=== PATIENT | female | born 1935 | race Caucasian/White ===

== ENCOUNTER 2019-07-03 11:56 | Inpatient (IN) | payer MEDICARE, BC ==
[~2019-07-03] VITALS: Ht 170.2 cm; Wt 74.4 kg
--- NOTE | ~2019-07-03 | HEMODYNAMI ---
PATIENT:SALINA LAGUNAS MEDICAL RECORD: [id number] : 31 LOCATION[facility] AD[facility] DATE: 07/03/19 Generatedon:07/03/201917:22 Patient name: SALINA LAGUNAS Patient #: [id number] SSN: : Date of study: 07/03/2019 Page: Of Hemodynamic Procedure Report Patient Data Patient Demographics Procedure consent was obtained First Name: SALINA Gender: Female Last Name: JANNETH : 1935 Patient #: [id number] Age: 83 year(s) Race: Unknown Additional ID: [id number] Contact details Address: [place] [address] State: [place] City: [place] Zip code: [address] Past Medical History Allergies: No known allergies Admission Admission Data Admission Date: 07/03/2019 Admission Time: 11:56 Room #: [facility] Procedure Procedure Types Cath Procedure Peripheral Cath Diagnostic Procedure Abd/Extremity Extremities Bilat Lower Extremity Procedure Description Procedure Date Procedure Date: 07/03/2019 Procedure Start Time: 16:09 Procedure End Time: 17:22 Procedure Staff Name Function Shae Lomax MD Performing Physician SALMA MONTERO RT Monitor Hollis Baugh RT Scrub Corinne Bañuelos RN Nurse Procedure Data Cath Procedure Fluoroscopy Diagnostic fluoroscopy Total fluoroscopy Time: time: 21.9 min 21.9 min Diagnostic fluoroscopy Total fluoroscopy dose: 217 dose: 217 mGy mGy Contrast Material Contrast Material Type Amount (ml) Isovue 300 105 Entry Location Entry Primary Successful Side Size Upsize Upsize Entry Closure Succes sful Closure Location (Fr) 1 (Fr) 2 (Fr) Remarks Device Remarks Femoral Right 5 Fr artery Procedure Medications Medication Administration Route Dosage Heparin Flush Bag added to field 3 bags (1000units/500ml NS) Lidocaine 1% added to field 20 Versed I.V. 0.5 mg Fentanyl I.V. 25 mcg Heparin Bolus I.V. 4000 units Hemodynamics Rest Heart Rate: 67 (bpm) Snapshots Pre Cath Intra NCS Post Cath Vital Signs Time Heart Resp SPO2 etCO2 NIBP (mmHg) Rhythm Pain Sedation Rate (ipm) (%) (mmHg) Status Level (bpm) 15:54:55 73 14 99 0 130/90(98) NSR 0 (11) 10(A) , No pain 15:59:55 71 12 97 0 Measuring NSR 0 (11) 10(A) , No pain 16:01:10 76 17 97 0 168/94(126) NSR 0 (11) 10(A) , No pain 16:05:32 70 18 99 0 170/94(139) NSR 0 (11) 10(A) , No pain 16:09:55 75 20 98 0 154/99(141) NSR 0 (11) 10(A) , No pain 16:14:21 68 25 97 0 127/67(96) NSR 0 (11) 10(A) , No pain 16:18:35 72 15 98 32.2 124/75(100) NSR 0 (11) 8(A) , No pain 16:23:34 69 17 98 37.4 Measuring NSR 0 (11) 8(A) , No pain 16:23:36 69 27 98 36.7 127/79(99) NSR 0 (11) 8(A) , No pain 16:28:35 69 16 98 35.2 Measuring NSR 0 (11) 8(A) , No pain 16:28:37 64 16 99 35.2 128/75(100) NSR 0 (11) 8(A) , No pain 16:32:47 62 30 98 32.2 136/84(108) NSR 0 (11) 8(A) , No pain 16:36:59 67 27 98 31.4 140/89(117) NSR 0 (11) 8(A) , No pain 16:41:19 59 11 98 30.7 148/68(111) NSR 0 (11) 8(A) , No pain 16:45:37 67 15 98 0 141/73(98) NSR 0 (11) 8(A) , No pain 16:49:51 60 21 98 35.2 140/85(118) NSR 0 (11) 8(A) , No pain 16:54:09 69 19 98 29.9 144/75(113) NSR 0 (11) 8(A) , No pain 16:58:27 56 9 99 20.2 156/75(107) NSR 0 (11) 8(A) , No pain 17:02:43 63 30 99 35.9 139/92(114) NSR 0 (11) 8(A) , No pain 17:06:57 65 17 99 30.7 153/84(135) NSR 0 (11) 8(A) , No pain 17:11:20 59 25 99 0 170/80(144) NSR 0 (11) 8(A) , No pain 17:16:19 75 15 99 26.9 Measuring NSR 0 (11) 8(A) , No pain 17:16:35 73 14 98 32.2 165/81(120) NSR 0 (11) 8(A) , No pain 17:21:05 61 10 98 0.7 148/73(122) NSR 0 (11) 8(A) , No pain Medications Time Medication Route Dose Verified Delivered Reason Notes Effec tiveness by by 16:10:39 Heparin Flush added 3 M J Long M J Long used for Bag to bags MD HECTOR procedure (1000units/500ml field NS) 16:10:54 Lidocaine 1% added 20ml M J Long M J Long used for to vial MD HECTOR procedure field 16:16:45 Versed I.V. 0.5 M J Long Corinne for mg MD Sarmad RODRIGUEZ sedation 16:16:56 Fentanyl I.V. 25 M J Long Corinne for mcg MD Sarmad RODRIGUEZ sedation 16:48:50 Heparin Bolus I.V. 4000 M J Long Corinne used for units MD Sarmad RODRIGUEZ procedure Procedure Log Time Note 15:47:29 Corinne Bañuelos RN sent for patient. Start room use. 15:47:30 Time tracking: Regular hours (M-F 7:00 - 5:00) 15:47:34 Plan of Care:Hemodynamics will remain stable., Cardiac rhythm will remain stable., Comfort level will be maintained., Respiratory function will remain adequate., Patient/ family verbilizes understanding of procedure., Procedure tolerated without complication., Recovers from procedure without complications.. 15:47:40 Patient received from Med/Surg to IR Alert and oriented. Tansferred to table in Supine position. 15:47:42 Signed procedure consent form obtained from patient. 15:47:44 Warm blankets applied, and aiden hugger turned on for patient comfort. 15:47:44 Correct patient and procedure confirmed by team. 15:47:44 ECG and BP/O2 sat monitors applied to patient. 15:47:46 - 15:47:50 H&P Date Dictated: 07/03/2019 Within 30 days and on chart.. 15:47:51 Pre-procedure instructions explained to patient. 15:47:52 Pre-op teaching completed and patient verbalized understanding. 15:47:54 Family in patients room. 15:47:56 Patient NPO since Midnight. 15:48:04 Patient allergic to No known allergies 15:48:09 Is the patient allergic to Iodine/contrast media? No. 15:49:13 Patient diabetic? Yes. 15:49:23 Is patient on blood thinner?No 15:50:17 ----Pre-sedation anethsthesia assessment.---- 15:50:20 Previous problem with sedation/anesthesia? No ? 15:50:22 Snore? No 15:50:24 Sleep apnea? No 15:50:26 Deviated septum? No 15:50:28 Opens mouth fully? Yes 15:50:29 Sticks out tongue? Yes 15:50:32 Airway obstruction? No ? 15:50:35 Dentures? No ? 15:50:44 IV patent on arrival in right hand with 0.9% NaCl at [facility]. 15:50:52 Pre procedure: right dorsailis pedis pulse Doppler 15:50:55 Pre procedure: left dorsailis pedis pulse 0-Absent 15:50:58 Pre procedure: right posterior tibial pulse Doppler 15:51:00 Pre procedure: left posterior tibial pulse 0-Absent 15:51:09 Left groin area was prepped with chlora-prep and draped in sterile fashion 15:51:11 Alarms reviewed by R. N. 15:51:11 Sharps counted by scrub and verified by R.N. 15:51:13 - 15:51:18 Use device set IR Diagnostic 15:51:20 ACIST Syringe (44804) opened to sterile field. 15:51:21 ACIST Hand Control (10768) opened to sterile field. 15:51:21 ACIST Manifold (32662) opened to sterile field. 15:51:22 Bag Decanter (2002S) opened to sterile field. 15:51:22 Sterile Angiographic Pack opened to sterile field. 15:51:23 Tegaderm 4 x 4 (1626W) opened to sterile field. 15:51:54 MICROPUNCTURE 4FR Cook (D62016) opened to sterile field. 15:51:55 SHEATH 5FR Wilson (IZS967) opened to sterile field. 15:51:55 DOC .035 wire (D36938) opened to sterile field. 15:52:02 TUBING High Pressure Extension Tubing (Puente) (OX2589Q) opened to sterile field. 15:53:05 - 15:53:57 Vital chart was started 15:53:58 Baseline sample Acquired. 15:54:00 Full Disclosure recording started 15:54:02 - 16:03:42 Physician arrived 16:03:47 Angiodynamics Omniflush 5Fr 65cm (45377667) opened to sterile field. 16:04:29 --------ALL STOP TIME OUT------ 16:04:30 Final Timeout: patient, procedure, and site verified with staff and physician. All members of the team are in agreement. 16:04:46 Left groin site verified by team. 16:04:50 3a) 45-59 Moderately reduced kidney function. 16:05:14 Procedure started. 16:09:08 Local anesthetic to left femerol artery with Lidocaine 1% by Shae Lomax MD.INITIAL ACCESS ONLY 16:09:27 Arterial access obtained using ultrasound guidance. 16:10:05 Access obtained with 4Fr micropunture. 16:10:39 Heparin Flush Bag (1000units/500ml NS) 3 bags added to field was administered by Shae Lomax MD; used for procedure; Verbal order read back and verified. 16:10:54 Lidocaine 1% 20ml vial added to field was administered by Shae Lomax MD; used for procedure; Verbal order read back and verified. 16:12:07 A 5 Fr sheath was inserted into the Right Femoral artery 16:16:12 GLIDE WIRE .035 180CM STRAIGHT (OP4782) opened to sterile field. 16:16:45 Versed 0.5 mg I.V. was administered by Corinne Bañuelos RN; for sedation; Verbal order read back and verified. 16:16:56 Fentanyl 25 mcg I.V. was administered by Corinne Bañuelos RN; for sedation; Verbal order read back and verified. 16:19:52 GLIDE CATHETER 5FR COBRA 100cm (CG503) opened to sterile field. 16:25:22 ARTHUR 260 wire (R04899) opened to sterile field. 16:25:22 SHEATH 6FR Destination (RSR01) opened to sterile field. 16:28:02 CXI SUPPORT .035 135 CM STR catheter (T82255) opened to sterile field. 16:44:09 INFUSION CATHETER 50cm Cragg-Roderick (3293101) opened to sterile field . 16:48:50 Heparin Bolus 4000 units I.V. was administered by Corinne Bañuelos RN; used for procedure; Verbal order read back and verified. 16:50:19 CHOICE PT Extra Support J 300cm guide wire ([id number]) opened to steril e field. 16:52:36 INFLATOR BasixTOUCH (ZK7828) opened to sterile field. 16:55:49 The NANOCROSS ELITE 2 X 6 X 150 ([id number]) was advanced and then inflated. 16:57:51 ARTHUR 260 wire (C15728) opened to sterile field. 17:05:38 Procedure ended.(Physican Out) 17:07:06 Fluoroscopy time 21.90 minutes. 17:07:12 Fluoroscopy dose: 217 mGy 17:07:12 Flurop Dose total: 217 17:07:17 Contrast amount:Isovue 300 105ml. 17:07:20 Insertion/operative site no bleeding no hematoma. 17:08:37 Procedure and supply charges have been captured, reviewed, submitted an d are correct. 17:21:34 Vital chart was stopped 17:22:19 See physician's report for complete and final results. 17:22:24 Report given to ICU. 17:22:26 Procedure ended. 17:22:26 Full Disclosure recording stopped Intervention Summary Intervention Notes Time ActionType Lesion and Equipment Used Action# Pressure Duration Attributes 16:55:49 Discard NANOCROSS ELITE Balloon 2 X 4 X 150 ([id number]( Device Usage Item Name Manufacture Quantity Catalog Number [facility] Minimal Lot# / Charge Number Stock Stock Serial# Code ACIST Syringe Acist Medical 1 11289 921155 208741 802833 20 (02300) Systems Inc ACIST Hand Acist Medical 1 75410 417630 991041 587818 5 Control (01477) Systems Inc ACIST Manifold Acist Medical 1 85051 744988 968956 174120 5 (90794) Systems Inc Bag Decanter Microtek 1 2001S 877237 65342 630960 5 (2001S) Medical Inc. Sterile Cardinal 1 [id number] 298236 262117 5 Angiographic Health Pack Tegaderm 4 x 4 3M 1 1626W 171835 506551 071862 5 (1626W) DOC Extension Adame 1 94728 296714 243939 680401 5 wire (99876) Vascular MICROPUNCTURE Cook Medical 1 B38735 847421 131591 928956 5 4FR Cook (I95920) SHEATH 5FR Terumo 1 KMR342 818871 876810 654093 5 Wilson (RXC723) DOC .035 wire Cook Medical 1 E99774 663223 051783 5 (B39162) TUBING High Merit Medical 1 QV8815T 258390 23753 147976 10 Pressure Extension Tubing (Puente) (AM8555K) Angiodynamics Angiodynamics 1 31868175 687849 627214 186888 5 Omniflush 5Fr 65cm (94397285) GLIDE WIRE .035 Terumo 1 GZ9252 749182 873036 5 180CM STRAIGHT (XI5188) GLIDE CATHETER Terumo 1 CG503 952488 222835 5 5FR COBRA 100cm (CG503) ARTHUR 260 wire Cook Medical 2 Y19625 784108 22806 289253 5 [id number] (T34117) SHEATH 6FR Terumo 1 RSR01 748081 74297 462119 5 Destination (RSR01) CXI SUPPORT .035 Powtoon 1 Q52124 016347 624631 719254 5 135 CM STR catheter (U32149) INFUSION Medtronic 1 31191-22 821296 398177 5 CATHETER 50cm Kavita (4876964) CHOICE PT Extra [place] 1 [id number] 006971 980293 717320 5 [id number] Support J 300cm Scientific guide wire (3226487M2) INFLATOR official.fm Medical 1 PA7080 530629 639211 209943 5 BasixTOUCH (FM2511) NANOCROSS ELITE Medtronic 1 [id number] 209775 203822 167225 1 2 X 4 X 150 ([id number]( Signature Audit Blanket Stage Time Signature Unsigned Intra-Procedure 07/03/2019 SALMA MONTERO RT 5:22:44 PM (R) [facility] [address] [place] [address]
--- NOTE | ~2019-07-03 | HEMODYNAMI ---
PATIENT:SALINA LAGUNAS MEDICAL RECORD: [id number] : 31 LOCATION:[place] [address] ADMISSION DATE: 07/03/19 Generatedon:07/05/20197:19 Patient name: SALINA LAGUNAS Patient #: [id number] SSN: : Date of study: 07/04/2019 Page: Of Hemodynamic Procedure Report Patient Data Patient Demographics Procedure consent was obtained First Name: SALINA Gender: Female Last Name: JANNETH : 1935 Patient #: [id number] Age: 83 year(s) Race: Unknown Additional ID: [id number] Contact details Address: [place] [address] State: [place] City: [place] Zip code: [address] Past Medical History Allergies: No allergy information Admission Admission Data Admission Date: 07/03/2019 Admission Time: 11:56 Room #: [facility] Procedure Procedure Types Cath Procedure Peripheral vascular Intervention Thrombolysis/Thrombectomy Thrombolysis Arterial Additional Day Procedure Description Procedure Date Procedure Date: 07/04/2019 Procedure Start Time: 8:23 Procedure End Time: 10:03 Procedure Staff Name Function Hollis Baugh RT Scrub Frances Vidal RN Nurse Shae Lomax MD Performing Physician Corinne Bañuelos RN Nurse SALMA MONTERO RT Monitor Procedure Data Cath Procedure Fluoroscopy Diagnostic fluoroscopy Total fluoroscopy Time: time: 31.9 min 31.9 min Contrast Material Contrast Material Type Amount (ml) Isovue 300 125 Procedure Medications Medication Administration Route Dosage Heparin Flush Bag added to field 2 bags (1000units/500ml NS) Lidocaine 1% added to field 20 Versed I.V. 0.5 mg Fentanyl I.V. 25 mcg Heparin Bolus I.V. 3000 units Versed I.V. 0.5 mg Fentanyl I.V. 25 mcg Heparin Bolus I.V. 1000 units Versed I.V. 1 mg Fentanyl I.V. 50 mcg Heparin Bolus I.V. 1000 units Hemodynamics Rest Heart Rate: 93 (bpm) Snapshots Pre Cath Intra NCS Post Cath Vital Signs Time Heart Resp SPO2 etCO2 NIBP (mmHg) Rhythm Pain Sedation Rate (ipm) (%) (mmHg) Status Level (bpm) 8:01:33 133 2 99 29.4 190/112(160) NSR 0 (11) 10(A) , No pain 8:06:32 91 8 99 31.7 Measuring NSR 0 (11) 10(A) , No pain 8:06:51 96 12 99 32.4 193/107(146) NSR 0 (11) 10(A) , No pain 8:11:13 125 12 99 32.4 187/105(150) NSR 0 (11) 10(A) , No pain 8:15:43 103 16 99 32.4 190/114(132) NSR 0 (11) 10(A) , No pain 8:20:12 106 20 100 29.4 184/90(138) NSR 0 (11) 10(A) , No pain 8:24:34 99 17 98 0 172/108(126) NSR 0 (11) 8(A) , No pain 8:28:54 93 17 98 33.2 159/87(137) NSR 0 (11) 8(A) , No pain 8:33:14 93 17 96 0 162/93(128) NSR 0 (11) 8(A) , No pain 8:37:38 92 16 97 0 159/82(121) NSR 0 (11) 8(A) , No pain 8:42:05 85 16 96 0 148/72(102) NSR 0 (11) 8(A) , No pain 8:46:45 99 24 96 9 104/76(90) NSR 0 (11) 8(A) , No pain 8:51:32 105 16 99 0 167/98(134) NSR 0 (11) 8(A) , No pain 8:56:31 95 17 97 0 Measuring NSR 0 (11) 8(A) , No pain 8:56:43 96 18 97 0 142/85(107) NSR 0 (11) 8(A) , No pain 9:00:57 93 19 98 0 142/84(112) NSR 0 (11) 8(A) , No pain 9:05:50 82 16 96 0 153/83(100) NSR 0 (11) 8(A) , No pain 9:10:06 89 18 98 29.4 143/97(125) NSR 0 (11) 8(A) , No pain 9:14:18 100 13 100 32.4 148/98(127) NSR 0 (11) 8(A) , No pain 9:18:40 101 12 96 0 164/75(105) NSR 0 (11) 8(A) , No pain 9:22:59 90 19 99 0 145/79(111) NSR 0 (11) 8(A) , No pain 9:27:14 79 17 98 0 147/83(115) NSR 0 (11) 8(A) , No pain 9:31:29 104 19 96 0 161/94(143) NSR 0 (11) 8(A) , No pain 9:35:48 82 14 100 33.2 173/104(142) NSR 0 (11) 8(A) , No pain 9:40:11 85 15 97 29.5 151/81(131) NSR 0 (11) 8(A) , No pain 9:44:29 92 16 95 34 141/84(110) NSR 0 (11) 8(A) , No pain 9:48:45 93 17 94 28.7 152/79(119) NSR 0 (11) 8(A) , No pain 9:53:01 86 16 98 0 147/83(107) NSR 0 (11) 8(A) , No pain 9:57:17 88 12 100 32.5 162/88(130) NSR 0 (11) 8(A) , No pain 10:02:16 96 15 33.2 Measuring NSR 0 (11) 8(A) , No pain 10:02:48 88 17 34 176/91(130) NSR 0 (11) 8(A) , No pain Medications Time Medication Route Dose Verified Delivered Reason Notes Effec tiveness by by 8:09:35 Heparin Flush added 2 M Binu Lomax used for Bag to bags MD HECTOR procedure (1000units/500ml field NS) 8:09:48 Lidocaine 1% added 20ml M Binu Lomax for local to vial MD HECTOR anesthetic field 8:24:10 Versed I.V. 0.5 M Binu Lomax Corinne for mg MD Bañuelos RN sedation 8:24:25 Fentanyl I.V. 25 M J Long Corinne for mcg MD Bañuelos RN sedation 8:36:25 Heparin Bolus I.V. 3000 M J Long Frances Per units MD Vidal RN physician 8:52:52 Versed I.V. 0.5 M J Long Corinne for mg MD Bañuelos RN sedation 8:53:13 Fentanyl I.V. 25 M J Long Corinne for mcg MD Bañuelos RN sedation 9:06:06 Heparin Bolus I.V. 1000 M J Long Frances Per units MD Vidal RN physician 9:14:37 Versed I.V. 1 mg M J Long Frances for MD Vidal RN sedation 9:14:47 Fentanyl I.V. 50 M J Long [place] [facility] [place] Vidal RN sedation 9:37:33 Heparin Bolus I.V. 1000 M J Long Corinne Per units MD Bañuelos RN physician Procedure Log Time Note 7:13:15 Use device set IR Diagnostic 7:13:20 Sterile Angiographic Pack opened to sterile field. 7:13:20 Bag Decanter (2002S) opened to sterile field. 7:13:21 Tegaderm 4 x 4 (1626W) opened to sterile field. 7:13:31 - 7:58:45 Hollis Baugh RT (R) (CV) sent for patient. Start room use. 7:58:47 Time tracking: Regular hours (M-F 7:00 - 5:00) 7:58:54 Plan of Care:Hemodynamics will remain stable., Cardiac rhythm will remain stable., Comfort level will be maintained., Respiratory function will remain adequate., Patient/ family verbilizes understanding of procedure., Procedure tolerated without complication., Recovers from procedure without complications.. 7:59:10 Patient received from ICU to IR Alert and oriented. Tansferred to table in Supine position. 7:59:12 Signed procedure consent form obtained from patient. 7:59:14 Warm blankets applied, and aiden hugger turned on for patient comfort. 7:59:16 ECG and BP/O2 sat monitors applied to patient. 7:59:16 Correct patient and procedure confirmed by team. 7:59:22 H&P Date Dictated: 07/04/2019 Within 30 days and on chart.. 7:59:23 Pre-procedure instructions explained to patient. 7:59:24 Pre-op teaching completed and patient verbalized understanding. 7:59:27 Family in waiting room. 7:59:29 Patient NPO since Midnight. 7:59:37 Patient allergic to No allergy information 7:59:40 Is the patient allergic to Iodine/contrast media? No. 7:59:47 Is patient on blood thinner?No 8:00:21 Patient diabetic? Yes. 8:00:24 Vital chart was started 8:00:42 ----Pre-sedation anethsthesia assessment.---- 8:00:45 Previous problem with sedation/anesthesia? No ? 8:00:47 Snore? Yes 8:00:48 Sleep apnea? No 8:00:50 Deviated septum? No 8:00:51 Opens mouth fully? Yes 8:00:52 Sticks out tongue? Yes 8:00:54 Airway obstruction? No ? 8:00:59 Dentures? No ? 8:01:05 - 8:01:10 Pre procedure: right dorsailis pedis pulse 0-Absent 8:01:14 Pre procedure: left dorsailis pedis pulse Doppler 8:01:17 Pre procedure: right posterior tibial pulse 0-Absent 8:01:22 Pre procedure: left posterior tibial pulse Doppler 8:01:31 IV patent on arrival in right hand with 0.45%NaCl at [facility]. 8:01:48 Left groin area was prepped with chlora-prep and draped in sterile fashion 8:01:52 Alarms reviewed by RCatherine NCatherine 8:01:53 Sharps counted by scrub and verified by R.N. 8:01:55 - 8:02:22 Baseline sample Acquired. 8:02:25 Full Disclosure recording started 8:02:27 - 8:08:49 Baseline sample Acquired. 8:09:35 Heparin Flush Bag (1000units/500ml NS) 2 bags added to field was administered by Shae Lomax MD; used for procedure; Verbal order read back and verified. 8:09:48 Lidocaine 1% 20ml vial added to field was administered by Shae Lomax MD; for local anesthetic; Verbal order read back and verified. 8:10:13 Baseline sample Acquired. 8:10:16 Baseline sample Acquired. 8:19:49 - 8:19:50 Physician arrived 8:20:46 --------ALL STOP TIME OUT------ 8:20:48 Final Timeout: patient, procedure, and site verified with staff and physician. All members of the team are in agreement. 8:20:57 Left groin site verified by team. 8:23:05 Procedure started. 8:24:10 Versed 0.5 mg I.V. was administered by Corinne Bañuelos RN; for sedation; Verbal order read back and verified. 8:24:25 Fentanyl 25 mcg I.V. was administered by Corinne Bañuelos RN; for sedation; Verbal order read back and verified. 8:27:34 ARTHUR 260 wire ([id number]) opened to sterile field. 8:27:35 CHOICE PT Extra Support J 300cm guide wire ([id number]) opened to steril e field. 8:29:10 CXI SUPPORT .035 135 CM STR catheter ([id number]) opened to sterile field. 8:32:35 CHOICE PT Floppy J 300cm guide wire ([id number]) opened to sterile field . 8:36:25 Heparin Bolus 3000 units I.V. was administered by Frances Vidal RN; Per physician; Verbal order read back and verified. 8:41:57 Indigo Cat Rx 6f w tubing (CATRXKIT) opened to sterile field. 8:41:58 Indigo System Separator 4 opened to sterile field. 8:52:52 Versed 0.5 mg I.V. was administered by Corinne Bañuelos RN; for sedation; Verbal order read back and verified. 8:53:13 Fentanyl 25 mcg I.V. was administered by Corinne Bañuelos RN; for sedation; Verbal order read back and verified. 9:04:14 additional iv placed right forearm- 22g iv cath 9:06:06 Heparin Bolus 1000 units I.V. was administered by Frances Vidal RN; Per physician; Verbal order read back and verified. 9:14:37 Versed 1 mg I.V. was administered by Frances Vidal RN; for sedation; Verbal order read back and verified. 9:14:47 Fentanyl 50 mcg I.V. was administered by Frances Vidal RN; for sedation ; Verbal order read back and verified. 9:17:50 INFLATOR BasixTOUCH ([id number]) opened to sterile field. 9:20:14 Inflate balloon Inflation number: 1 A Evercross 5 x 100 x 135 Balloon ([id number]) was prepped and advanced across the Undefined1 , then inflated. 9:27:56 INFUSION CATHETER 10cm Kdgg-Roderick ([id number]) opened to sterile field . 9:37:33 Heparin Bolus 1000 units I.V. was administered by Corinne Bañuelos RN; Per physician; Verbal order read back and verified. 9:39:21 CHOICE PT Extra Support J 300cm guide wire ([id number]) opened to steril e field. 9:43:40 The NANOCROSS ELITE 2 X 4 X 150 ([id number]) was advanced across Undefined 3 and then inflated. 9:53:47 Procedure ended.(Physican Out) 9:54:27 Fluoroscopy time 31.90 minutes. 9:54:31 Dose Area Product 273 mGy/cm. 9:54:58 Contrast amount:Isovue 300 125ml. 9:54:59 Sharps counted by scrub and verified by R.N. 9:55:09 Post-op/insertion site Left Femoral artery infusion catheter and sheath remain in patient dressed using a 4 x 4 and Tegaderm. 9:55:46 Post Procedure Pulses reassessed and unchanged 9:55:49 Post procedure instruction explained to patient.Patient verbalizes understanding. 9:57:53 Procedure and supply charges have been captured, reviewed, submitted an d are correct. 10:03:06 Vital chart was stopped 10:03:10 Report given to ICU. 10:03:12 See physician's report for complete and final results. 10:03:14 Full Disclosure recording stopped 10:03:14 Procedure ended. Intervention Summary Intervention Notes Time ActionType Lesion and Equipment Used Action# Pressure Duration Attributes 9:20:14 Inflate Undefined1 Evercross 5 x 1 0 00:00 balloon 100 x 135 Balloon ([id number]) 9:43:40 Discard NANOCROSS ELITE Balloon 2 X 4 X 150 ([id number]( Device Usage Item Name Manufacture Quantity Catalog Number Hospital Part Current Minimal Lot# / Charge Number Stock Stock Serial# Code Bag Decanter Microtek 1 [id number] [id number] [id number] 5 () Medical Inc. Sterile Cardinal 1 [id number] 5 Angiographic Health Pack Tegaderm 4 x 4 3M 1 1626W 884862 704029 309216 5 (1626W) ARTHUR 260 wire Cook Medical 1 [id number] 010052 09515 762995 5 ([id number]) CHOICE PT Extra [place] 2 [id number] 184435 5 Support J 300cm Scientific guide wire (4127981P0) CXI SUPPORT .035 [employer] Medical 1 [id number] 491923 370859 808391 5 135 CM STR catheter (D91572) CHOICE PT Floppy [place] 1 [id number] 867096 046393 5 J 300cm guide Scientific wire ([id number]) Indigo Cat Rx 6f Penumbra 1 CATRXKIT 383101 237159 205945 1 w tubing (CATRXKIT) Indigo System Penumbra 1 SEP6 919549 779092 617298 1 Separator 6 INFLATOR Merit 1 LL9013 545794 793473 479209 5 Altatech Medical (GY1440) Evercross 5 x Medtronic 1 [id number] 830599 894491 364695 5 100 x 135 Balloon ([id number]) INFUSION Medtronic 1 24290-24 265677 050445 5 CATHETER 10cm [facility] ([id number][facility] NANOCROSS ELITE Medtronic 1 [id number] 749783 856297 556239 1 2 X 4 X 150 ([id number]( Signature Audit [place] Stage Time Signature Unsigned Intra-Procedure 07/04/2019 SALMA MONTERO RT Hollis Urbinaield RT 10:03:31 AM (R) (R) (CV) 07/05/2019 7:14:36 AM Intra-Procedure 07/05/2019 Hollis Shafer Shuffield RT 7:15:45 AM [place] RT (R) (CV) 07/05/2019 (R) (CV) 7:17:58 AM Intra-Procedure 07/05/2019 Hollis 7:19:00 AM [place]uffield RT (R) (CV) [facility] [address] [place] [address]
--- NOTE | ~2019-07-03 | HEMODYNAMI ---
PATIENT:SALINA LAGUNAS MEDICAL RECORD: [id number] : 31 LOCATION:[place] [address] ADMISSION DATE: 07/03/19 Generatedon:07/05/201910:36 Patient name: SALINA LAGUNAS Patient #: [id number] SSN: : Date of study: 07/05/2019 Page: Of Hemodynamic Procedure Report Patient Data Patient Demographics Procedure consent was obtained First Name: SALINA Gender: Female Last Name: JANNETH : 1935 Patient #: [id number] Age: 83 year(s) Race: Unknown Additional ID: [id number] Contact details Address: [place] [address] State: [place] City: [place] Zip code: [address] Past Medical History Allergies: No known allergies Admission Admission Data Admission Date: 07/03/2019 Admission Time: 11:56 Room #: [facility] Procedure Procedure Types Cath Procedure Peripheral vascular Intervention Thrombolysis/Thrombectomy Thrombolysis Catheter Removal Procedure Description Procedure Date Procedure Date: 07/05/2019 Procedure Start Time: 10:30 Procedure End Time: 10:36 Procedure Staff Name Function Reji Ruiz MD Performing Physician SALMA MONTERO RT Monitor Hollis Baugh RT Scrub Corinne Bañuelos RN Nurse Frances Vidal RN Nurse Procedure Data Cath Procedure Fluoroscopy Diagnostic fluoroscopy Total fluoroscopy Time: 0.5 time: 0.5 min min Contrast Material Contrast Material Type Amount (ml) Isovue 300 55 Entry Location Entry Primary Successful Side Size (Fr) Upsize Upsize Entry Closure Successful Closure Location 1 (Fr) 2 (Fr) Remarks Device Remarks Femoral 6 Fr Angio-VIP artery Mid-Length 6Fr Hemodynamics Rest Heart Rate: 104 (bpm) Snapshots Pre Cath Intra NCS Post Cath Vital Signs Time Heart Resp SPO2 etCO2 NIBP (mmHg) Rhythm Pain Sedation Rate (ipm) (%) (mmHg) Status Level (bpm) 10:19:23 101 15 98 0 Measuring NSR 0 (11) 10(A) , No pain 10:19:39 105 19 98 0 151/106(120) NSR 0 (11) 10(A) , No pain 10:24:03 104 20 97 0 122/65(101) NSR 0 (11) 10(A) , No pain 10:29:02 97 12 99 0 Measuring NSR 0 (11) 10(A) , No pain 10:29:06 94 11 98 0 160/94(113) NSR 0 (11) 10(A) , No pain 10:33:22 97 18 99 0 151/88(127) NSR 0 (11) 10(A) , No pain Procedure Log Time Note 9:04:16 Use device set IR Diagnostic 9:04:17 Tegaderm 4 x 4 (1626W) opened to sterile field. 9:04:18 Sterile Angiographic Pack opened to sterile field. 9:04:19 Bag Decanter (2002S) opened to sterile field. 10:09:05 SALMA SANDOVAL (R) sent for patient. Start room use. 10:09:12 Time tracking: Regular hours (M-F 7:00 - 5:00) 10:09:18 Plan of Care:Hemodynamics will remain stable., Cardiac rhythm will remain stable., Comfort level will be maintained., Respiratory function will remain adequate., Patient/ family verbilizes understanding of procedure., Procedure tolerated without complication., Recovers from procedure without complications.. 10:09:23 Patient received from ICU to IR Alert and oriented. Tansferred to table in Supine position. 10:09:26 Signed procedure consent form obtained from patient. 10:09:26 Warm blankets applied, and aiden hugger turned on for patient comfort. 10:09:27 Correct patient and procedure confirmed by team. 10:09:29 ECG and BP/O2 sat monitors applied to patient. 10:09:29 - 10:09:39 H&P Date Dictated: 07/05/2019 Within 30 days and on chart.. 10:09:42 Pre-procedure instructions explained to patient. 10:09:42 Pre-op teaching completed and patient verbalized understanding. 10:09:47 Family in waiting room. 10:09:49 Patient NPO since Midnight. 10:09:56 Patient allergic to No known allergies 10:09:58 Is the patient allergic to Iodine/contrast media? No. 10:10:06 Is patient on blood thinner?No 10:10:08 Patient diabetic? Yes. 10:10:09 If diabetic: On Metformin? No 10:10:11 - 10:10:13 ----Pre-sedation anethsthesia assessment.---- 10:10:17 Previous problem with sedation/anesthesia? No ? 10:10:19 Snore? Yes 10:10:21 Sleep apnea? No 10:10:22 Deviated septum? No 10:10:24 Opens mouth fully? Yes 10:10:26 Sticks out tongue? Yes 10:10:29 Airway obstruction? No ? 10:10:33 Dentures? No ? 10:10:34 - 10:11:19 Pre procedure: right dorsailis pedis pulse Doppler 10:11:22 Pre procedure: left dorsailis pedis pulse Doppler 10:11:25 Pre procedure: right posterior tibial pulse Doppler 10:11:28 Pre procedure: left posterior tibial pulse Doppler 10:11:42 IV patent on arrival in right forearm with 0.45%NaCl at [facility]. 10:11:52 Patient arrived with Sheath in place. 10:12:01 Left groin area was prepped with betadine and draped in sterile fashion 10:12:04 Alarms reviewed by RCatherine NCatherine 10:12:04 Sharps counted by scrub and verified by R.N. 10:12:06 - 10:17:33 Vital chart was started 10:18:02 Baseline sample Acquired. 10:25:03 Physician arrived 10:25:05 --------ALL STOP TIME OUT------ 10:25:06 Final Timeout: patient, procedure, and site verified with staff and physician. All members of the team are in agreement. 10:25:28 Left groin site verified by team. 10::43 Procedure started. 10::43 Full Disclosure recording started 10:30:26 Local anesthetic to left femerol artery with Lidocaine 1% by Reji Ruiz MD.INITIAL ACCESS ONLY 10:31:14 A 6 Fr Mid-Length sheath was inserted into the Femoral artery 10:31:14 Sheath removed intact; hemostasis achieved with Angio-VIP 6Fr to the Femoral artery. 10:31:52 DOC Extension wire (79136) opened to sterile field. 10:31:52 ANGIOSEAL-VIP PLUS 6 FR opened to sterile field. 10:33:50 Procedure ended.(Physican Out) 10:34:10 Fluoroscopy time 00.50 minutes. 10:34:14 Dose Area Product 43 mGy/cm. 10:34:19 Contrast amount:Isovue 300 55ml. 10:34:21 Sharps counted by scrub and verified by R.N. 10:34:23 Insertion/operative site no bleeding no hematoma. 10:34:37 Post procedure instruction explained to patient.Patient verbalizes understanding. 10:34:41 Procedure and supply charges have been captured, reviewed, submitted an d are correct. 10:36:16 Vital chart was stopped 10:36:21 Operative report dictated upon procedure completion. 10:36:22 See physician's report for complete and final results. 10:36:28 Patient transfered to ICU with Bed. 10:36:29 Procedure ended. 10:36:29 Full Disclosure recording stopped 10:36:33 End room use (Document Last) Device Usage Item Name Manufacture Quantity Catalog Hospital Part Current Minima l Lot# / Number Charge Number Stock Stock Serial# Code Tegaderm 4 x 3M 1 1626W [id number] [id number] [id number] 5 4 (1626W) Sterile Cardinal 1 [id number] 553615 5 Angiographic Health Pack Bag Decanter Microtek 1 2001S 598575 79537 788050 5 (2001S) Medical Inc. ANGIOSEAL-VIP [place] 1 [id number] 460842 381151 222940 5 PLUS 6 FR DOC Extension Adame 1 86381 837804 729853 872059 5 wire (99708) Vascular Signature Audit [place] Stage Time Signature Unsigned Intra-Procedure 07/05/2019 SALMA MONTERO RT 10:36:51 AM (R) [facility] [address] [place] [address]
--- NOTE | 2019-07-03 12:51 | NUR ---
RECEIVED PATIENT FROM DR. CARPIO'S OFFICE A DIRECT ADMIT. ALERT AND ORIENTED, CAN ANSWER MOST QUESTIONS. VITALS STABLE. USES WHEELCHAIR. IV TO RIGHT HAND, 20 GA X2 TRIES SL. SITE PATENT WITHOUT REDNESS OR SWELLING. DENIES ANY NEEDS AT THIS TIME. CALL LIGHT IN REACH. WILL CONTINUE TO MONITOR.
[2019-07-03 13:12] LABS: BASOPHILS 0.1 % (0-2); EOSINOPHILS 0.4 % (0-7); HEMATOCRIT 46.4 % (36.0-48.0); HEMOGLOBIN 15.4 g/dL (12-16); IMMATURE GRANULOCYTES 0.1 % (0-5); MCH 30.5 pg (26.0-34.0); MCHC 33.2 g/dL (31.0-37.0); MCV 91.9 fL (80.0-100.0); MEAN PLATELET VOLUME 12.4 fL (7.4-10.4); MONOCYTES 8.5 % (2-11); NEUTROPHILS 66.9 % (40-80); PLATELET COUNT 112 10x3/uL (130-400); RBC 5.05 10x6/uL (4.00-5.40); WBC 8.9 10x3/uL (4.8-10.8)
[2019-07-03 13:20] LABS: APTT 30.5 SECONDS (22.8-39.4); INR 1.08 (0.85-1.17)
[2019-07-03 13:32] LABS: ALBUMIN 2.9 g/dL (3.4-5.0); ANION GAP 12.4 mmol/L (8-16); BILIRUBIN - TOTAL 1.09 mg/dL (0.2-1.3); CALCIUM 9.4 mg/dL (8.5-10.1); CARBON DIOXIDE 27.1 mmol/L (21.0-32.0); CREATININE - SERUM 1.2 mg/dL (0.6-1.3); POTASSIUM - SERUM 3.5 mmol/L (3.5-5.1); PROTEIN - SERUM 6.7 g/dL (6.4-8.2)
[2019-07-03 17:53] LABS: BASOPHILS 0.1 % (0-2); EOSINOPHILS 1.2 % (0-7); HEMATOCRIT 46.1 % (36.0-48.0); HEMOGLOBIN 15.2 g/dL (12-16); IMMATURE GRANULOCYTES 0.1 % (0-5); LYMPHOCYTES 38.2 % (15-50); MCH 30.3 pg (26.0-34.0); MEAN PLATELET VOLUME 11.8 fL (7.4-10.4); MONOCYTES 9.4 % (2-11); PLATELET COUNT 105 10x3/uL (130-400); RBC 5.01 10x6/uL (4.00-5.40); RDW 13.9 % (11.5-14.5); WBC 8.5 10x3/uL (4.8-10.8)
[2019-07-03 17:58] VITALS: BP 179/90; BMI 25.7
[2019-07-03 18:05] LABS: INR 1.23 (0.85-1.17); PROTIME 15.4 SECONDS (11.6-15.0)
--- NOTE | 2019-07-03 18:14 | NUR ---
PT ARRIVED IN THE UNIT. PT ALERT BUT NOTED TO HAVE DEMANTIA. PT PLEASANTLY CONFUSED. CONNETED TO ICU MONITORS. CONTROLED AFIB. IV NOTED TO RIGHT HAND WITH HEPARIN AT 500U/H AND ALTAPACE AT 1MG/H (20ML/H). RIGHT GROIN SHEET NOTED C/D/I WITH SCANT AMOUNT OF BLOOD NOTED. NO HEMATOMA NOTED. RLE PULSE DOPPLERABLE BUT COOL. LLE PULSELESS AND COOL. AWARE. CALL LIGHT IN REACH. WILL CONT POC.
[2019-07-03 18:27] LABS: FIBRINOGEN 310 mg/dL (239-481)
[2019-07-03 18:42] LABS: APTT > 200.0 SECONDS (22.8-39.4)
[2019-07-03 19:00] VITALS: BP 165/72
[2019-07-03 20:00] VITALS: BP 153/87
--- NOTE | 2019-07-03 20:45 | NUR ---
REC'D CALLBACK FROM JUANITA REGARDING BP AND BLEEDING FROM LT GROIN SITE, NEW ORDERS REC'D FOR PRN HYDRALIZE AND SANDBAG TO SITE.
--- NOTE | 2019-07-03 20:45 | NUR ---
REC'D CALLBACK FROM DR. GRANT REGARDING HYPERTENSION AND BLEEDING FROM LT GROIN SHEATH SITE. REC'D NEW ORDERS FOR PRN APRESOLINE AND SANDBAG TO SITE.
[2019-07-03 21:00] VITALS: BP 134/70
[2019-07-03 22:00] VITALS: BP 115/81
[2019-07-03 23:00] VITALS: BP 158/74
[2019-07-03 23:14] LABS: BASOPHILS 0.2 % (0-2); EOSINOPHILS 1.1 % (0-7); HEMOGLOBIN 15.7 g/dL (12-16); IMMATURE GRANULOCYTES 0.1 % (0-5); MCHC 34.1 g/dL (31.0-37.0); MCV 90.7 fL (80.0-100.0); MEAN PLATELET VOLUME 12.4 fL (7.4-10.4); MONOCYTES 10.2 % (2-11); NEUTROPHILS 55.4 % (40-80); PLATELET COUNT 112 10x3/uL (130-400); RBC 5.07 10x6/uL (4.00-5.40); RDW 13.8 % (11.5-14.5); WBC 9.1 10x3/uL (4.8-10.8)
[2019-07-03 23:25] LABS: INR 1.14 (0.85-1.17); PROTIME 14.6 SECONDS (11.6-15.0)
[2019-07-03 23:31] LABS: APTT 106.6 SECONDS (22.8-39.4)
[2019-07-04] VITALS (23 sets, daily range): BP systolic 118–184; BP diastolic 55–100; BMI 25.7
--- NOTE | 2019-07-04 00:41 | NUR ---
PT ATTEMPTING TO BEND LT LEG, PT TEACHING PROVIDED AT THIS TIME, PT EXPERIENCING SOME CONFUSION. WILL CONTINUE TO TEACH/REMIND PT TO KEEP LEG STRAIGHT. ROOM VISIBLE FROM NURSES STATION.
--- NOTE | 2019-07-04 02:00 | NUR ---
PT HAS TAKEN OF BP CUFF, SPO2 SENSOR, AND ATTEMPTING TO PULL OUT IV. PT REORIENTED AND EQUIPMENT PLACED BACK ON PT. PT STATES SHE IS TIRED OF BEING IN THE HOSPITAL WITH "ALL THESE WIRES". NURSE AT BEDSIDE UNITL PT IS CALM AND COOPERATIVE. LEGS STRAIGHT. SOME BLEEDING NOTED AT LT GROIN, AREA SOFT TO PALPATION. VSS, CPOC.
--- NOTE | 2019-07-04 03:00 | NUR ---
REASSESSMENT COMPLETE, SEE FLOWSHEET FOR ALL FINDINGS. PT ATTEMPTING TO PULL OFF MONITORING EQUIPMENT, PT REORIENTED. LT GROIN SOFT TO PALPATION, SOME BLEEDING NOTED TO DRSG. LT PEDAL PULSE PRESENT, RT PREDAL PULSE REMAINS ABSENT. LEGS STRAIGHT. VSS, PT WILL BECOME AGITATED BUT WITH REORIENTATION WILL CALM QUICKLY. ROOM VISIBLE FROM NURSES STATION. CPOC.
--- NOTE | 2019-07-04 04:44 | NUR ---
PT HAS RIPPED OFF LT GROIN DRSG, SHEATH REMAINS INTACT. BILATERAL WRIST RESTRAINTS PLACED AND DRESSING REPLACED. AREA SOFT TO PALPATION, LT PEDAL PULSE PRESENT.
[2019-07-04] MEDS ORDERED: LOPRESSOR25 MG PO (05:37)
[2019-07-04] MEDS ORDERED: LEVOTHYROXINE112 MCG PO (05:37)
[2019-07-04] MEDS ORDERED: VITAMIN D10000 UNI1 PO (05:37)
[2019-07-04] MEDS ORDERED: TRANDOLAPRIL1 MG PO (05:38)
[2019-07-04] MEDS ORDERED: FUROSEMIDE40 MG PO (05:39)
[2019-07-04] MEDS ORDERED: PEPCID AC20 MG PO (05:39)
[2019-07-04] MEDS ORDERED: LEVEMIR FL100 UNIT/1 SC (05:39)
[2019-07-04] MEDS ORDERED: BAYER CHEWABLE81 MG PO (05:41)
[2019-07-04] MEDS ORDERED: FISH OIL 1,0001 CA1 PO (05:41)
[2019-07-04] MEDS ORDERED: ISOSORBIDE MONO30 M1 PO (05:42)
[2019-07-04] MEDS ORDERED: NOVOLOG100 UNIT/1 SC (05:45)
[2019-07-04 06:10] LABS: BASOPHILS 0.1 % (0-2); EOSINOPHILS 0.6 % (0-7); HEMATOCRIT 47.2 % (36.0-48.0); HEMOGLOBIN 15.8 g/dL (12-16); IMMATURE GRANULOCYTES 0.3 % (0-5); LYMPHOCYTES 26.6 % (15-50); MCH 30.6 pg (26.0-34.0); MCHC 33.5 g/dL (31.0-37.0); MCV 91.5 fL (80.0-100.0); MEAN PLATELET VOLUME 12.3 fL (7.4-10.4); NEUTROPHILS 62.4 % (40-80); PLATELET COUNT 106 10x3/uL (130-400); RBC 5.16 10x6/uL (4.00-5.40); WBC 9.6 10x3/uL (4.8-10.8)
[2019-07-04 07:12] LABS: INR 1.07 (0.85-1.17); PROTIME 13.8 SECONDS (11.6-15.0)
[2019-07-04 07:14] LABS: APTT 48.9 SECONDS (22.8-39.4)
--- NOTE | 2019-07-04 07:52 | NUR ---
PT BEING WHEELED OUT OF ICU ON BED BY IR STAFF
[2019-07-04 08:39] LABS: ANION GAP 12.1 mmol/L (8-16); CALCIUM 9.1 mg/dL (8.5-10.1); CARBON DIOXIDE 30.7 mmol/L (21.0-32.0); CREATININE - SERUM 1.1 mg/dL (0.6-1.3); POTASSIUM - SERUM 3.8 mmol/L (3.5-5.1)
[2019-07-04 08:46] LABS: ALBUMIN 3.2 g/dL (3.4-5.0); BILIRUBIN - TOTAL 1.71 mg/dL (0.2-1.3); PROTEIN - SERUM 6.6 g/dL (6.4-8.2)
--- NOTE | 2019-07-04 08:52 | HP ---
PATIENT: SALINA LAGUNAS MEDICAL RECORD: [id number] ACCOUNT: [id number] LOCATION:[facility] D.2307 : 31 ADMISSION DATE: 07/03/19 PCP: SONIA CARPIO MD HISTORY AND PHYSICAL EXAMINATION CHIEF COMPLAINT: Cold leg. HISTORY OF PRESENT ILLNESS: This is an 83-year-old white female with dementia who was brought in by her son stating that he first noticed her right lower extremity to be cold yesterday morning and then again this morning compared to the left lower extremity below the knee. The patient has dementia. She denies any pain. She was directly admitted from my office to [place] where she was placed on heparin drip and started workup for most likely peripheral artery disease. PAST MEDICAL HISTORY: Coronary artery disease, diabetes, dementia, hypothyroidism, skin cancer, chronic systolic congestive heart failure from an echocardiogram in 2004 showing EF of 20%. PAST SURGICAL HISTORY: Coronary artery bypass graft in 2004, coronary stents, and skin cancer removed from left forearm. ALLERGIES: None known. HABITS: Never smoked. No alcohol or drugs. HOME MEDICATIONS: Fish oil daily, aspirin 81 mg daily, Pepcid 20 mg twice a day, vitamin D 50,000 units once a week, Levemir 50 units subq q.a.m., NovoLog 5 units in the morning and 11 units at supper, isosorbide mononitrate 30 mg once a day, Lasix 40 mg once a day, metoprolol tartrate 25 mg one half b.i.d., trandolapril 1 mg once a day, and levothyroxine 112 mcg once a day. SOCIAL HISTORY: She is , lives with her son. FAMILY HISTORY: Parents are . Family history is noncontributory for 83 year old. REVIEW OF SYSTEMS: GENERAL: No major weight changes. HEENT: No particular sinus or allergy problems. RESPIRATORY: No history of asthma, emphysema, or COPD. CARDIAC: She has a history of coronary artery disease. It has been years since she saw a grapple operator and that was before she was moved to [place] last year. GASTROINTESTINAL: She has heartburn. GENITOURINARY: No significant problems there. MUSCULOSKELETAL: She has had some arthritic aches and pains. NEUROLOGIC: Has dementia. No seizures. No migraines. PSYCHIATRIC: No depression or melancholia. PHYSICAL EXAMINATION: VITAL SIGNS: Temperature 97.5, pulse 70, respirations 17, blood pressure 179/70, and O2 sat 96%. GENERAL: This is an elderly female who was in her normal state of dementia. She is unable to give any history, but she says she does not hurt anywhere. HISTORY AND PHYSICAL [id number] SALINA LAGUNAS HEENT: Unremarkable. NECK: Supple. No JVD or bruit. HEART: Regular rate and rhythm. No murmur. LUNGS: Fairly clear. ABDOMEN: Soft. EXTREMITIES: The right lower extremity below the knee is cold. The left lower extremity is little cool but nothing like the light. ASSESSMENT: 1. Cold leg, most likely peripheral vascular disease. 2. Dementia. 3. Diabetes. 4. History of coronary artery disease. PLAN: Direct admit, start heparin drip. Order CTA of the Pelvis and lower extremities. Interventional radiology is consulted. Other tests or procedures as warranted. TRANSINT:[id number] Voice Confirmation ID: [id number] DOCUMENT ID: [id number] SONIA CARPIO MD at 0852 CC: [id number] DICTATION DATE: 07/03/19 2331 OCCUPATIONAL PHYSICIAN: 07/04/[address] [facility] [address] [place] [id number]
--- NOTE | 2019-07-04 11:29 | NUR ---
FABIAN FROM IR IN ROOM LOOKING AT DRESSING. PT PULLED AT LINES. FABIAN STATED THAT WE WERE STILL GOOD. DRESSING REINFORCED. WILL CONTINUE TO MONITOR
[2019-07-04 11:46] LABS: BASOPHILS 0.3 % (0-2); EOSINOPHILS 0.1 % (0-7); HEMATOCRIT 48.3 % (36.0-48.0); HEMOGLOBIN 15.8 g/dL (12-16); IMMATURE GRANULOCYTES 0.3 % (0-5); LYMPHOCYTES 25.6 % (15-50); MCH 30.7 pg (26.0-34.0); MCHC 32.7 g/dL (31.0-37.0); MEAN PLATELET VOLUME 12.3 fL (7.4-10.4); MONOCYTES 7.6 % (2-11); NEUTROPHILS 66.1 % (40-80); PLATELET COUNT 100 10x3/uL (130-400); RBC 5.14 10x6/uL (4.00-5.40); RDW 14.2 % (11.5-14.5); WBC 8.8 10x3/uL (4.8-10.8)
[2019-07-04 12:08] LABS: INR 1.13 (0.85-1.17); PROTIME 14.5 SECONDS (11.6-15.0)
[2019-07-04 12:11] LABS: APTT 139.2 SECONDS (22.8-39.4)
--- NOTE | 2019-07-04 12:30 | NUR ---
PT FAMILY STATED THEY NEEDED HELP IN PT ROOM. WHEN ENTERING ROOM BLOOD WAS NOTED ON RIGHT HAND FROM IV SITE. PT HAD RIPPED OUT IV AND WAS BLEEDING. IV DRESSING REMOVED AND NEW DRESSING APPLIED. RT GROIN DRESSING WAS LEAKING. FABIAN FROM IR IN ROOM TO REPLACE DRESSING. LINES STILL INTACT. PT LINENS CHANGED. WILL CONTINUE TO MONITOR
--- NOTE | 2019-07-04 13:12 | NUR ---
PT CONFUSED TRYING TO SIT UP IN BED. REORIENTED AND TOLD TO REMAIN FLAT DUE TO SHEATH IN LEG. WILL CONTINUE TO MONITOR
--- NOTE | 2019-07-04 14:39 | MORECARE ---
CASE MANAGEMENT DISCHARGE SUMMARY PATIENT: SALINA LAGUNAS UNIT: [id number] ADM DATE: 07/03/19 AGE: 83 : 33 SEX: F ROOM/BED: D.2307 AUTHOR: LINDSEY GARCIA PHYSICIAN: REFERRING PHYSICIAN: SONIA CARPIO MD DATE OF SERVICE: 07/04/19 Discharge Plan Patient Name: SALINA LAGUNAS [facility] [facility] 1935 Planned Disposition: Anticipated Discharge Date: Discharge Date: Expected LOS: Initial Reviewer: [email or web address] Initial Review Date: 07/03/2019 Generated: 07/04/19 3:38 pm Comments DCP- Discharge Planning Updated by [email or web address]: Pati Can on 07/04/19 1:[address] Patient is currently confused and no family available to answer discharge planning assessment questions. CM will continue to follow and assist as needed with discharge planning / needs. DCPIA - Discharge Planning Initial Assessment Updated by [email or web address]: Pati Can on 07/04/19 2:32 pm * Is the patient Alert and Oriented? No * How many steps to enter\exit or inside your home? * PCP SHIRIN Patient Name: SALINA LAGUNAS Page [id number] at 1439 All edits/amendments must be made on the electronic document DICTATION DATE: 07/04/19 143 TRAFFIC MANAGER: DERIK 07/04/19 1438 RPT#: [id number] DC DATE: STATUS: ADM IN [facility] [address] [place] [address] END OF REPORT
[2019-07-04 17:39] LABS: BASOPHILS 0.2 % (0-2); EOSINOPHILS 0.1 % (0-7); HEMATOCRIT 46.2 % (36.0-48.0); HEMOGLOBIN 15.5 g/dL (12-16); IMMATURE GRANULOCYTES 0.2 % (0-5); LYMPHOCYTES 17.4 % (15-50); MCH 31.1 pg (26.0-34.0); MCHC 33.5 g/dL (31.0-37.0); MCV 92.8 fL (80.0-100.0); MEAN PLATELET VOLUME 12.9 fL (7.4-10.4); MONOCYTES 9.2 % (2-11); NEUTROPHILS 72.9 % (40-80); RBC 4.98 10x6/uL (4.00-5.40); RDW 14.2 % (11.5-14.5)
[2019-07-04 17:41] LABS: PLATELET COUNT 122 10x3/uL (130-400); WBC 12.2 10x3/uL (4.8-10.8)
--- NOTE | 2019-07-04 17:45 | NUR ---
NEW ORDER FOR A UGALDE PER DR ARGUELLES. UGALDE CATHETER INSERTED. PT TOLERATED WELL. OVER 350 ML URINE RETURN.
[2019-07-04 17:53] LABS: INR 1.12 (0.85-1.17); PROTIME 14.3 SECONDS (11.6-15.0)
[2019-07-04 17:59] LABS: APTT 56.6 SECONDS (22.8-39.4)
--- NOTE | 2019-07-04 18:00 | NUR ---
DRESSING CHANGED ON LT GROIN. PT TOLERATED WELL.
[2019-07-04 23:13] LABS: INR 1.17 (0.85-1.17); PROTIME 14.8 SECONDS (11.6-15.0)
[2019-07-04 23:15] LABS: BASOPHILS 0.2 % (0-2); EOSINOPHILS 0.1 % (0-7); HEMATOCRIT 44.4 % (36.0-48.0); HEMOGLOBIN 14.8 g/dL (12-16); IMMATURE GRANULOCYTES 0.4 % (0-5); LYMPHOCYTES 8.3 % (15-50); MCHC 33.3 g/dL (31.0-37.0); MCV 92.9 fL (80.0-100.0); MONOCYTES 9.2 % (2-11); NEUTROPHILS 81.8 % (40-80); PLATELET COUNT 135 10x3/uL (130-400); RBC 4.78 10x6/uL (4.00-5.40); RDW 14.4 % (11.5-14.5); WBC 10.5 10x3/uL (4.8-10.8)
[2019-07-04 23:18] LABS: APTT 42.2 SECONDS (22.8-39.4)
[2019-07-05] VITALS (23 sets, daily range): BP systolic 96–150; BP diastolic 52–132
[2019-07-05 04:55] LABS: BASOPHILS 0.2 % (0-2); EOSINOPHILS 0 % (0-7); HEMATOCRIT 42.2 % (36.0-48.0); HEMOGLOBIN 13.6 g/dL (12-16); IMMATURE GRANULOCYTES 0.3 % (0-5); LYMPHOCYTES 11.8 % (15-50); MCH 30.2 pg (26.0-34.0); MCHC 32.2 g/dL (31.0-37.0); MCV 93.6 fL (80.0-100.0); MEAN PLATELET VOLUME 13.1 fL (7.4-10.4); MONOCYTES 7.8 % (2-11); NEUTROPHILS 79.9 % (40-80); PLATELET COUNT 127 10x3/uL (130-400); RBC 4.51 10x6/uL (4.00-5.40); RDW 14.4 % (11.5-14.5); WBC 11.5 10x3/uL (4.8-10.8)
[2019-07-05 05:01] LABS: INR 1.24 (0.85-1.17); PROTIME 15.5 SECONDS (11.6-15.0)
[2019-07-05 09:46] LABS: BASOPHILS 0.2 % (0-2); EOSINOPHILS 0 % (0-7); HEMATOCRIT 42.1 % (36.0-48.0); HEMOGLOBIN 13.7 g/dL (12-16); IMMATURE GRANULOCYTES 0.7 % (0-5); LYMPHOCYTES 15.9 % (15-50); MCH 30.2 pg (26.0-34.0); MCHC 32.5 g/dL (31.0-37.0); MCV 92.9 fL (80.0-100.0); MEAN PLATELET VOLUME 12.7 fL (7.4-10.4); MONOCYTES 10.4 % (2-11); NEUTROPHILS 72.8 % (40-80); PLATELET COUNT 114 10x3/uL (130-400); RBC 4.53 10x6/uL (4.00-5.40); RDW 14.3 % (11.5-14.5); WBC 12.1 10x3/uL (4.8-10.8)
--- NOTE | 2019-07-05 10:02 | NUR ---
Solitario VILLAREAL RN HERE TO TAKE PATIENT TO IR AT THIS TIME. PREVIOUS DRESSING CHANGE DID NOT INCLUDE CATH AND CATH NOT SECURE. CHARGE NURSE NOTIFIED. PEDAL PULSE REMAINS PALPABLE.
[2019-07-05 10:07] LABS: INR 1.21 (0.85-1.17); PROTIME 15.3 SECONDS (11.6-15.0)
[2019-07-05 10:08] LABS: APTT 41.5 SECONDS (22.8-39.4)
--- NOTE | 2019-07-05 11:00 | NUR ---
PATIENT ARRIVED BACK TO ROOM FROM IR WITH Shae VILLAREAL RN. SHEATH HAS BEEN REMOVED FROM THE LT GROIN. PRESSURE DRESSING NOW IN THE LT GROIN. GROIN IS SOFT WITHOUT S/S OF HEMATOMA. B/L PEDAL PULSES PRESENT. LOWER EXTREMITIES ARE WARM TO THE TOUCH AND CAP REFILL IS < 3 SEC.
--- NOTE | 2019-07-05 12:20 | NUR ---
FAMILY AT BEDSIDE. BED IN LOW POSITION. VSS.
--- NOTE | 2019-07-05 16:12 | NUR ---
SPOKE WITH DR NAZARIO ABOUT STARTING A DIET FOR THE PATIENT. TELEPHONE ORDER FOR A DIABETIC DIET STARTING FOR DINNER JESE.
[2019-07-05 16:29] LABS: BASOPHILS 0.1 % (0-2); EOSINOPHILS 0 % (0-7); HEMOGLOBIN 13.6 g/dL (12-16); IMMATURE GRANULOCYTES 0.3 % (0-5); LYMPHOCYTES 14.7 % (15-50); MCH 31.1 pg (26.0-34.0); MCHC 33.2 g/dL (31.0-37.0); MCV 93.6 fL (80.0-100.0); MEAN PLATELET VOLUME 12.6 fL (7.4-10.4); MONOCYTES 10.6 % (2-11); NEUTROPHILS 74.3 % (40-80); PLATELET COUNT 114 10x3/uL (130-400); RBC 4.38 10x6/uL (4.00-5.40); RDW 14.6 % (11.5-14.5); WBC 11.7 10x3/uL (4.8-10.8)
[2019-07-05 16:36] LABS: INR 1.34 (0.85-1.17); PROTIME 16.5 SECONDS (11.6-15.0)
--- NOTE | 2019-07-05 17:48 | NUR ---
PATIENT RESTING WITH EYES CLOSE. SUPINE HOB AT 30 DEGREES. VSS. PERSONAL ITEMS AND CALL LIGHT WITHIN REACH. BED IN LOW POSITION.
--- NOTE | 2019-07-05 18:05 | MORECARE ---
CASE MANAGEMENT DISCHARGE SUMMARY PATIENT: SALINA LAGUNAS UNIT: [id number] ADM DATE: 07/03/19 AGE: 83 : 33 SEX: F ROOM/BED: D.2307 AUTHOR: LINDSEY GARCIA PHYSICIAN: REFERRING PHYSICIAN: SONIA CARPIO MD DATE OF SERVICE: 07/05/19 Discharge Plan Patient Name: SALINA LAGUNAS Facility: [facility]:[place] : 1935 Planned Disposition: Home Anticipated Discharge Date: Discharge Date: Expected LOS: Initial Reviewer: [email or web address] Initial Review Date: 07/03/2019 Generated: 07/05/19 7:05 pm Comments DCP- Discharge Planning Updated by [email or web address]: Pati Can on 07/04/19 1:[address] Patient is currently confused and no family available to answer discharge planning assessment questions. CM will continue to follow and assist as needed with discharge planning / needs. DCPIA - Discharge Planning Initial Assessment Updated by [email or web address]: Pati Can on 07/05/19 6:04 pm * Is the patient Alert and Oriented? No * How many steps to enter\exit or inside your home? ramp * PCP SHIRIN * Pharmacy [facility] * Preadmission Environment Home with Family * ADLs Independent * Equipment Walker * List name and contact numbers for known caregivers / representatives who currently or will assist patient after discharge: Pravin Lagunas [facility] - [phone] * Verbal permission to speak to the caregivers and representatives has been obtained from the patient. Yes * Community resources currently utilized None * Additional services required to return to the preadmission environment? No * Can the patient safely return to the preadmission environment? Yes * Has this patient been hospitalized within the prior 30 days at any hospital? No Last DP export: 07/04/19 1:39 p Patient Name: SALINA LAGUNAS Page 50143 at 1805 All edits/amendments must be made on the electronic document DICTATION DATE: 07/05/191804 BREEDER HEN SERVICE TECHNICIAN: DERIK 07/05/191804 RPT#: [id number] DC DATE: STATUS: ADM IN [facility] [address] [place] [address] END OF REPORT
--- NOTE | 2019-07-05 18:14 | MORECARE ---
CASE MANAGEMENT DISCHARGE SUMMARY PATIENT: SALINA LAGUNAS UNIT: [id number] ADM DATE: 07/03/19 AGE: 83 : 33 SEX: F ROOM/BED: D.2307 AUTHOR: RADHADOC PHYSICIAN: REFERRING PHYSICIAN: SONIA CARPIO MD DATE OF SERVICE: 07/05/19 Discharge Plan Patient Name: SALINA LAGUNAS Facility: [facility]:[place] : 1935 Planned Disposition: Home Anticipated Discharge Date: Discharge Date: Expected LOS: Initial Reviewer: [email or web address] Initial Review Date: 07/03/2019 Generated: 07/05/19 7:14 pm Comments DCP- Discharge Planning Updated by [id number]: Pati Can on 07/05/19 5:[address] Patient Name: SALINA LAGUNAS Admission Status: Elective Accout number: [id number] Admission Date: 07-03-2019 : 1935 Admission Diagnosis: Attending: SONIA CARPIO Current LOS: 2 Anticipated DC Date: Planned Disposition: Home Primary Insurance: MEDICARE A & B Discharge Planning Comments: CM met with patient and son Pravin to complete initial dc planning assessment. CM educated patient on the CM role and verbal consent given by patient to complete assessment. CM verified patient's address, phone number, and emergency contact phone numbers. Patient lives at home with her son. At discharge patient plans to return home and feels that she may require some assistance. CM discussed availability of home health, rehab services, and medical equipment. Patient denies any discharge needs at this time. CM will continue to follow and will assist as needed with dc plans/needs. Safety Trainer: Pati Can DCP- Discharge Planning Updated by [email or web address]: Pati Can on 07/04/19 1:[address] Patient is currently confused and no family available to answer discharge planning assessment questions. CM will continue to follow and assist as needed with discharge planning / needs. DCPIA - Discharge Planning Initial Assessment Updated by [email or web address]: Pati Can on 07/05/19 6:04 pm * Is the patient Alert and Oriented? No * How many steps to enter\exit or inside your home? ramp * PCP SHIRIN * Pharmacy [facility] * Preadmission Environment Home with Family * ADLs Independent * Equipment Walker * List name and contact numbers for known caregivers / representatives who currently or will assist patient after discharge: Pravin Lagunas - trae - [phone] * Verbal permission to speak to the caregivers and representatives has been obtained from the patient. Yes * Community resources currently utilized None * Additional services required to return to the preadmission environment? No * Can the patient safely return to the preadmission environment? Yes * Has this patient been hospitalized within the prior 30 days at any hospital? No Last DP export: 07/05/19 5:05 p Patient Name: SALINA LAGUNAS Page 39601 at 1814 All edits/amendments must be made on the electronic document DICTATION DATE: 07/05/191813 DOLL EYE SETTER: DERIK 07/05/191813 RPT#: [id number] DC DATE: STATUS: ADM IN [facility] [address] [place] [address] END OF REPORT
[2019-07-05 21:56] LABS: BASOPHILS 0.2 % (0-2); EOSINOPHILS 0.1 % (0-7); HEMATOCRIT 37.8 % (36.0-48.0); HEMOGLOBIN 12.3 g/dL (12-16); IMMATURE GRANULOCYTES 0.3 % (0-5); LYMPHOCYTES 18.9 % (15-50); MCH 30.3 pg (26.0-34.0); MCHC 32.5 g/dL (31.0-37.0); MCV 93.1 fL (80.0-100.0); MEAN PLATELET VOLUME 12.8 fL (7.4-10.4); MONOCYTES 13.6 % (2-11); NEUTROPHILS 66.9 % (40-80); PLATELET COUNT 105 10x3/uL (130-400); RBC 4.06 10x6/uL (4.00-5.40); RDW 14.4 % (11.5-14.5); WBC 11.5 10x3/uL (4.8-10.8)
[2019-07-05 22:10] LABS: INR 1.23 (0.85-1.17); PROTIME 15.4 SECONDS (11.6-15.0)
--- NOTE | 2019-07-05 23:45 | NUR ---
RECIEVED REPORT FROM SANNA RODRIGUEZ, TAKING OVER PATIENT CARE. PATIENT LAYING IN BED IN SUPINE POSITION, EYES CLOSED BREATHING EVEN AND UNLABORED. CALL LIGHT WITHIN REACH AND BED IN LOWEST LOCKED POSITION.
[2019-07-06] VITALS (16 sets, daily range): BP systolic 101–157; BP diastolic 58–99; Ht 170.2 cm; Wt 74.4 kg
--- NOTE | 2019-07-06 01:00 | NUR ---
PATIENT LAYING IN BED IN SUPINE POSTITON, EYES CLOSED BREATHING EVEN AND UNLABORED. NO S/SX OF DISTRESS AT THIS TIME. CALL LIGHT WIHTIN REACH
[2019-07-06 03:39] LABS: HEMATOCRIT 37.3 % (36.0-48.0); HEMOGLOBIN 12.1 g/dL (12-16); MCH 30.2 pg (26.0-34.0); MCHC 32.4 g/dL (31.0-37.0); MEAN PLATELET VOLUME 12.9 fL (7.4-10.4); RBC 4.01 10x6/uL (4.00-5.40); RDW 14.4 % (11.5-14.5); WBC 11.5 10x3/uL (4.8-10.8)
--- NOTE | 2019-07-06 05:19 | NUR ---
PATIENT LAYING IN BED IN SUPINE POSITION. EYES CLOSED, BREATHING EVEN AND UNLABORED. CALL LIGHT WITHIN REACH.
--- NOTE | 2019-07-06 06:46 | NUR ---
Nutrition follow-up: Diet started last evening: ADA consistent CHO Unsure of po intake Labs reviewed Will provide food choices with selective menus and honor food preferences Will offer nutritional supplements RDN following
--- NOTE | 2019-07-06 10:37 | NUR ---
REHAB PRESCREENING Rehab referral received and chart reviewed. Rehab will continue to follow for PT and ST evaluations in order to assess admission criteria. Thank you for this referral! Graciela Anand, AUTOMOTIVE SALES PROFESSIONAL Rehab PD
--- NOTE | 2019-07-06 10:52 | NUR ---
0900-DR CARPIO AT BEDSIDE-SON AT BEDSIDE-EXPRESSED CONCERN-PT FREQUENTLY COUGHS WHEN DRINKS WATER-ORDERS RECIEVED AND NOTED
--- NOTE | 2019-07-06 10:55 | NUR ---
0945-PO NEDS GIVEN WITH THICKENED WATER-TOLERATED WELL
--- NOTE | 2019-07-06 17:10 | NUR ---
1215 CARDIOLOGY SERVICES AT BEDSIDE-ASSESSED PT AND SPOKE WITH PT SON VIA TELEPHONE-ECHO CARDIOGRAM IN PROGRESS-ATTEMPTED TO SEND RELEASE OF INFO TO PT PREVIOUS CARDIOLOGY SERVICE-OFFICE CLOSED AFTER 1200 ON TUESDAY-FAX FAILED 1345-PHYSICAL THERAPY AT BEDSIDE-ATTEMPTED TO STAND PT WITH WALKER FOR SUPPORT-PT STATED NOT ABLE TO BEAR WEIGHT ON L LEG-EXPRESSED SEVERE PAIN FROM KNEE TO FOOT -ASSISTED TO BED PT STATED PAIN RELIEVED AT THIS TIME-L GROIN SITE SOFT TO TOUCH NO HEMATOMA NOTED 1700-SON AT BEDSIDE -GIVEN NEW ROOM NUMBER AND TRANSFER THIS EVENING
--- NOTE | 2019-07-06 18:42 | NUR ---
PT TO ROOM ON BED FROM ICU. FAMILY IN ROOM. BLE WARM TO TOUCH. DOPPLAR TO RIGHT FOOT, PALP ON LEFT. ARNIE ARM IV'S NOTED.
[2019-07-07 00:30] VITALS: BP 129/59
[2019-07-07 04:30] VITALS: BP 141/62
[2019-07-07 05:29] LABS: HEMATOCRIT 33.8 % (36.0-48.0); MCH 30.1 pg (26.0-34.0); MCHC 32.5 g/dL (31.0-37.0); MCV 92.6 fL (80.0-100.0); MEAN PLATELET VOLUME 12.5 fL (7.4-10.4); RBC 3.65 10x6/uL (4.00-5.40); WBC 9.2 10x3/uL (4.8-10.8)
--- NOTE | 2019-07-07 07:44 | NUR ---
RECIEVED REPORT. PATIENT IS AWAKE AND ALERT. SHE IS CONFUSED. BROUGHT A BED SIDE COMMODE IN BECAUSE SHE SAID SHE NEEDS TO USE THE TOILET, AND SHE IS VERY WEAK. SHE CAN BEAR WEIGHT, AND TRANSITION TO THE BSC. SHE IS PASSING GAS, BUT SHE IS NOT HAVING A BM. UGALDE IS STILL IN PLACE.
[2019-07-07 08:21] VITALS: BP 145/76
[2019-07-07 11:22] VITALS: BP 135/52
[2019-07-07 15:32] VITALS: BP 103/45
--- NOTE | 2019-07-07 15:56 | NUR ---
PATIENT IS RESTING QUIETLY AT THIS TIME. SHE DENIES ANY NEEDS.
--- NOTE | 2019-07-07 19:52 | NUR ---
REPORT RECEIVED. BEDSIDE SHIFT REPORT COMPLETE. PT UP IN BED RESTING WITH EYES CLOSED. RR EVEN AND UNLABORED. NO S/SX OF DISTRESS OBSERVED AT THIS TIME. NO NEEDS EXPRESSED. CALL LIGHT IN REACH. WILL CTM.
[2019-07-07 20:30] VITALS: BP 130/58
[2019-07-08 04:30] VITALS: BP 136/58
[2019-07-08 05:28] LABS: HEMATOCRIT 33.4 % (36.0-48.0); HEMOGLOBIN 10.9 g/dL (12-16); MCH 30.2 pg (26.0-34.0); MCHC 32.6 g/dL (31.0-37.0); MCV 92.5 fL (80.0-100.0); MEAN PLATELET VOLUME 12.2 fL (7.4-10.4); RBC 3.61 10x6/uL (4.00-5.40)
[2019-07-08 08:06] VITALS: BP 157/70
--- NOTE | 2019-07-08 09:05 | NUR ---
RECIEVED REPORT. PATIENT IS SITTING UP IN BED EATTING BREAKFAST AT THIS TIME. HER UGALDE CATHETER WAS REMOVED AT 0500 BY THE DIRECTOR OF SPECIAL EDUCATION. MONITORING OUTPUT NOW.
[2019-07-08 11:47] VITALS: BP 134/98
[2019-07-08 15:55] VITALS: BP 112/52
--- NOTE | 2019-07-08 19:05 | NUR ---
REPORT RECEIVED. BEDSIDE SHIFT REPORT COMPLETE. PT RESTING IN BED RR EVEN AND UNLABORED. NO S/SX OF DISTRESS OBSERVED AT THIS TIME. FAMILY PRESENT AT BEDSIDE. POSY ALARM ON AND WORKING. NO NEEDS EXPRESSED. CALL LIGHT IN REACH. WILL CTM.
[2019-07-08 20:30] VITALS: BP 157/83
[2019-07-09 00:30] VITALS: BP 128/60
[2019-07-09 04:30] VITALS: BP 117/66
[2019-07-09 05:52] LABS: HEMATOCRIT 34.9 % (36.0-48.0); HEMOGLOBIN 11.4 g/dL (12-16); MCH 29.8 pg (26.0-34.0); MCHC 32.7 g/dL (31.0-37.0); MCV 91.1 fL (80.0-100.0); MEAN PLATELET VOLUME 12.6 fL (7.4-10.4); RBC 3.83 10x6/uL (4.00-5.40); WBC 7.6 10x3/uL (4.8-10.8)
[2019-07-09 08:43] VITALS: BP 140/69
--- NOTE | 2019-07-09 08:51 | MORECARE ---
CASE MANAGEMENT DISCHARGE SUMMARY PATIENT: SALINA LAGUNAS UNIT: [id number] ADM DATE: 07/03/19 AGE: 83 : 33 SEX: F ROOM/BED: D.2103 AUTHOR: RADHA,DOC PHYSICIAN: REFERRING PHYSICIAN: SONIA CARPIO MD DATE OF SERVICE: 07/09/19 Discharge Plan Patient Name: SALINA LAGUNAS Facility: [facility]:[place] : 1935 Planned Disposition: Home Anticipated Discharge Date: Discharge Date: Expected LOS: Initial Reviewer: [email or web address] Initial Review Date: 07/03/2019 Generated: 07/09/19 9:51 am DCP- Discharge Planning Updated by [email or web address]: Pati Can on 07/05/19 5:[address] Patient Name: SALINA LAGUNAS Admission Status: Elective Accout number: [id number] Admission Date: 07-03-2019 : 1935 Admission Diagnosis: Attending: SONIA CARPIO Current LOS: 2 Anticipated DC Date: Planned Disposition: Home Primary Insurance: MEDICARE A & B Discharge Planning Comments: CM met with patient and son Pravin to complete initial dc planning assessment. CM educated patient on the CM role and verbal consent given by patient to complete assessment. CM verified patient's address, phone number, and emergency contact phone numbers. Patient lives at home with her son. At discharge patient plans to return home and feels that she may require some assistance. CM discussed availability of home health, rehab services, and medical equipment. Patient denies any discharge needs at this time. CM will continue to follow and will assist as needed with dc plans/needs. Toll Gate Keeper: Pati Can DCP- Discharge Planning Updated by [id number]: Pati Can on 07/04/19 1:[address] Patient is currently confused and no family available to answer discharge planning assessment questions. CM will continue to follow and assist as needed with discharge planning / needs. DCPIA - Discharge Planning Initial Assessment Updated by [email or web address]: Pati Can on 07/05/19 6:04 pm * Is the patient Alert and Oriented? No * How many steps to enter\exit or inside your home? ramp * PCP SHIRIN * Pharmacy [facility] * Preadmission Environment Home with Family * ADLs Independent * Equipment Walker * List name and contact numbers for known caregivers / representatives who currently or will assist patient after discharge: Pravin Lagunas - trae - [phone] * Verbal permission to speak to the caregivers and representatives has been obtained from the patient. Yes * Community resources currently utilized None * Additional services required to return to the preadmission environment? No * Can the patient safely return to the preadmission environment? Yes * Has this patient been hospitalized within the prior 30 days at any hospital? No Last DP export: 07/05/19 5:14 p Patient Name: SALINA LAGUNAS Page 02162 at 0851 All edits/amendments must be made on the electronic document DICTATION DATE: 07/09/19850 AUTOMATED MANUFACTURING INSTRUCTOR: DERIK 07/09/19850 RPT#: [id number] DC DATE: STATUS: ADM IN [facility] [address] [place] [address] END OF REPORT
[2019-07-09 11:46] VITALS: BP 145/72
[2019-07-09] MEDS ORDERED: PLAVIX75 MG PO (14:00)
--- NOTE | 2019-07-09 14:21 | NUR ---
I have reviewed this patient and I concur with the Shift Assessment completed by the Licensed Practical Nurse today this shift.
--- NOTE | 2019-07-09 14:49 | NUR ---
CALLED DR CARPIO TO CONFIRM METOPROLOL DOSAGE. PT WAS ON 25 MG BID DURING HOSPITALIZATION OPPOSED TO 12.5 [address] CARPIO WILL CONTINUE 25 MG BID @ DISCHARGE TO REHAB.
--- NOTE | 2019-07-09 15:05 | MORECARE ---
CASE MANAGEMENT DISCHARGE SUMMARY PATIENT: SALINA LAGUNAS UNIT: [id number] ADM DATE: 07/03/19 AGE: 83 : 33 SEX: F ROOM/BED: D.2103 AUTHOR: RADHADOC PHYSICIAN: REFERRING PHYSICIAN: SONIA CARPIO MD DATE OF SERVICE: 07/09/19 Discharge Plan Patient Name: SALINA LAGUNAS [facility] [facility] 1935 Planned Disposition: Inpatient Rehab Anticipated Discharge Date: 07/09/19 Discharge Date: Expected LOS: 6 Initial Reviewer: [email or web address] Initial Review Date: 07/03/2019 Generated: 07/09/19 4:04 pm Comments DCP- Discharge Planning Updated by [email or web address]: Brice Shook on 07/09/19 2:[address] Patient Name: SALINA LAGUNAS Admission Status: Elective Accout number: [id number] Admission Date: 07-03-2019 : 1935 Admission Diagnosis: Attending: SONIA CARPIO Current LOS: 6 Anticipated DC Date: 07-09-2019 Planned Disposition: Inpatient Rehab Primary Insurance: MEDICARE A & B PLANNED EXTERNAL PROVIDER: [facility] INPATIENT REHAB Discharge Planning Comments: CM RECEIVED ORDER FOR INPATIENT REHAB PRESCREENING. CM SPOKE TO ASHA OF INPATIENT REHAB, THEY PLAN TO ACCEPT PT TODAY FOR REHAB. DR CARPIO NOTIFIED. CM MET WITH PT AND SISTER IN ROOM, DISCUSSED REHAB OPTIONS, LOCATIONS AND PROVIDERS. PT AND HER SISTER NOTIFIED, BOTH IN AGREEMENT WITH DISCHARGE TO INPATIENT REHAB. IMPORTANT MESSAGE FROM MEDICARE PROVIDED AND EXPLAINED. CHOICE FOR [facility] INPATIENT REHAB SIGNED BY PT. [facility] INPATIENT REHAB TO CONTACT MED 2 NURSE WITH ROOM NUMBER WHEN READY TO ACCEPT PT AND NURSE REPORT. Contact Person: Brice Shook DCP- Discharge Planning Updated by [email or web address]: Pati Can on 07/05/19 5:[address] Patient Name: SALINA LAGUNAS Admission Status: Elective Accout number: [id number] Admission Date: 07-03-2019 : 1935 Admission Diagnosis: Attending: SONIA CARPIO Current LOS: 2 Anticipated DC Date: Planned Disposition: Home Primary Insurance: MEDICARE A & B Discharge Planning Comments: CM met with patient and son Pravin to complete initial dc planning assessment. CM educated patient on the CM role and verbal consent given by patient to complete assessment. CM verified patient's address, phone number, and emergency contact phone numbers. Patient lives at home with her son. At discharge patient plans to return home and feels that she may require some assistance. CM discussed availability of home health, rehab services, and medical equipment. Patient denies any discharge needs at this time. CM will continue to follow and will assist as needed with dc plans/needs. Contact Person: Pati Can DCP- Discharge Planning Updated by [id number]: Pati Can on 07/04/19 1:[address] Patient is currently confused and no family available to answer discharge planning assessment questions. CM will continue to follow and assist as needed with discharge planning / needs. DCPIA - Discharge Planning Initial Assessment Updated by [email or web address]: Pati Can on 07/05/19 6:04 pm * Is the patient Alert and Oriented? No * How many steps to enter\exit or inside your home? ramp * PCP SHIRIN * Pharmacy [facility] * Preadmission Environment Home with Family * ADLs Independent * Equipment Walker * List name and contact numbers for known caregivers / representatives who currently or will assist patient after discharge: Pravin Lagunas - trae - [phone] * Verbal permission to speak to the caregivers and representatives has been obtained from the patient. Yes * Community resources currently utilized None * Additional services required to return to the preadmission environment? No * Can the patient safely return to the preadmission environment? Yes * Has this patient been hospitalized within the prior 30 days at any hospital? No Coverage Notice Reviewer: [id number] Shook Notice Issued Date-Time: 07/09/2019 14:45 Notice Type: IM Discharge Notice Notice Delivered To: Patient Relationship to Patient: Dock Hand Name: Delivery Method: HAND - Hand Delivered [place] Days: Prior Verbal Notification: Recipient Understood Notice: Yes Recipient Signature: Yes Med Rec Note Co-signed by Attending: Coverage Notice Comment: Reviewer: [id number] Shook Notice Issued Date-Time: 07/09/2019 14:45 Notice Type: Patient Choice Letter Notice Delivered To: Patient Relationship to Patient: Dock Hand Name: Delivery Method: HAND - Hand Delivered [place] Days: Prior Verbal Notification: Recipient Understood Notice: Yes Recipient Signature: Yes Med Rec Note Co-signed by Attending: Coverage Notice Comment: [facility] INPATIENT REHAB Last DP export: 07/09/19 7:51 am Patient Name: SALINA LAGUNAS Page 01514 at 1505 All edits/amendments must be made on the electronic document DICTATION DATE: 07/09/19 1504 FOUNDER AND CEO: DERIK 07/09/19 1504 RPT#: [id number] DC DATE: STATUS: ADM IN [facility] [address] [place] [address] END OF REPORT
--- NOTE | 2019-07-11 08:18 | EC ---
PATIENT:SALINA LAGUNAS DATE OF SERVICE: 07/03/19 SEX: F MEDICAL RECORD: [id number] DATE OF : 31 LOCATION:D.M2 D.210 AGE OF PATIENT: 83 ADMISSION DATE: 07/03/19 REFERRING PHYSICIAN: INTERPRETING PHYSICIAN: FABY VAN MD ECHOCARDIOGRAM REPORT ECHO CHARGES 4 ECHO COMPLETE Date: 07/06/19 CLINICAL DIAGNOSIS: CHF, ASSESS LA, NEW AFIB ECHOCARDIOGRAPHIC MEASUREMENTS (adult normal given) AC root (d.<3.7cm) 3.2 cm LV Septum d (<1.2 cm> 1.0 cm Valve Excursion 1.0 cm LV Septum (systole) 1.2 cm Left Atria (s.<4.0cm> 5.3 cm LVPW d(<1.2cm) 1.2 cm RV (d.<2.3cm) 2.7 cm LVPW (sytole) 1.3 cm LV diastole(<5.6CM) 5.3 cm MV E-F(>70mm/sec) cm LV systole 4.7 cm LVOT Diameter 2.2 cm MV exc.(>10mm) cm Est.ejection fraction (50-75%) % DOPPLER: LVIT cm/sec A 23 cm/sec E 103 cm/sec LA cm/sec RVSP 37.3 mmHg LVOT 61 cm/sec AOP1/2T m/s Asc. Ao 140 cm/sec RVOT 55 cm/sec RA cm/sec PA 79 cm/sec AV Gradient Peak 7.8 mmHg AV Mean 3.9 mmHg AV Area 1.3 cm MV Gradient Peak 6.4 mmHg MV Mean 2.5 mmHg MV Area cm COMMENTS: Fabricator Artificial Breast: Jacques HEIN Platform Material Handler Manager: 3 Dr. Holcomb TAPE# PACS Pericardial Effusion N DATE OF SERVICE: Adequate 2D, color flow imaging, spectral Doppler, and M-Mode No LVH. LV internal dimensions are normal. Wall motion is normal. EF is greater than or equal to 55%. Aortic valve is sclerotic. No evidence of stenosis by Doppler interrogation. Left atrium is dilated at 5.3 cm. Mitral valve shows no prolapse. Mild MR. Right-sided chambers are grossly normal. Trace TR. ECHOCARDIOGRAM REPORT [id number] SALINA LAGUNAS TRANSINT:[id number] Voice Confirmation ID: [id number] DOCUMENT ID: [id number] FABY VAN MD at 0818 CC: [id number] DICTATION DATE: 07/07/19 1030 NATURAL GAS TREATING UNIT OPERATOR: 07/07/19 1501 DIS IN 07/09/19 [facility] [address] [place] [id number]
== END 2019-07-09 18:14 | DRG 272 ==
LOC: D.ICU 11:56 → D.MS 11:56 → D.ICU 16:29 → D.M2 07-06 17:42
PROVIDERS: Radiology Vascular & Interventional Radiology; ADMIT Family Medicine; ATTEND Family Medicine
PROC: B40F1ZZ Plain Radiography of Right Lower Extremity Arteries using Low Osmolar Contrast (ICD-10-PCS; 2019-07-03)
PROC: 3E05317 Introduction of Other Thrombolytic into Peripheral Artery, Percutaneous Approach (ICD-10-PCS; 2019-07-03)
PROC: 04CK3ZZ Extirpation of Matter from Right Femoral Artery, Percutaneous Approach (ICD-10-PCS; 2019-07-04)
PROC: 3E05317 Introduction of Other Thrombolytic into Peripheral Artery, Percutaneous Approach (ICD-10-PCS; 2019-07-04)
PROC: 047 Lower Arteries, Dilation (ICD-10-PCS; principal; 2019-07-04 07:50)
DX: I74.3 Embolism and thrombosis of arteries of the lower extremities (principal); F03.90 Unspecified dementia, unspecified severity, without behavioral disturbance, psychotic disturbance, mood disturbance, and anxiety; I25.10 Atherosclerotic heart disease of native coronary artery without angina pectoris; E03.9 Hypothyroidism, unspecified; E10.9 Type 1 diabetes mellitus without complications

== ENCOUNTER 2019-07-09 16:59 | Inpatient (IN) | payer MEDICARE, BC ==
[~2019-07-09] VITALS: Ht 170.2 cm; Wt 70.3 kg
[~2019-07-09 16:59] MED LIST: BAYER CHEWABLE81 MG PO; FISH OIL 1,0001 CA1 PO; FUROSEMIDE40 MG PO; ISOSORBIDE MONO30 M1 PO; LEVEMIR FL100 UNIT/1 SC; LEVOTHYROXINE112 MCG PO; LOPRESSOR25 MG PO; NOVOLOG100 UNIT/1 SC; PEPCID AC20 MG PO; PLAVIX75 MG PO; TRANDOLAPRIL1 MG PO; VITAMIN D10000 UNI1 PO
--- NOTE | 2019-07-09 19:30 | NUR ---
PT IS RESTING IN BED WITH EYES OPEN. ALERT TO SELF. CONFUSED TO TIME AND PLACE. PT REORIENTS EASILY, BUT ALSO FORGETS AGAIN QUICKLY. BED ALARM IS ON. SR'S ARE UP X 3 IN BED. CALL LIGHT AND BEDSIDE TABLE ARE WITHIN EASY REACH.
[2019-07-09 20:41] VITALS: BP 162/78
--- NOTE | 2019-07-09 22:10 | NUR ---
PT ASSISTED TO THE BATHROOM WITH MIN ASSIST.
[2019-07-09 22:22] VITALS: BP 162/78; BMI 24.3
--- NOTE | 2019-07-10 00:45 | NUR ---
PT IS RESTING QUIETLY IN BED WITH EYES CLOSED.
--- NOTE | 2019-07-10 04:08 | NUR ---
PT RESTING IN BED WITH EYES CLOSED. NO DISTRESS NOTED.
[2019-07-10 06:38] LABS: BASOPHILS 0.3 % (0-2); EOSINOPHILS 3.2 % (0-7); HEMATOCRIT 37.1 % (36.0-48.0); HEMOGLOBIN 12.4 g/dL (12-16); IMMATURE GRANULOCYTES 0.5 % (0-5); LYMPHOCYTES 27.7 % (15-50); MCH 30.4 pg (26.0-34.0); MCHC 33.4 g/dL (31.0-37.0); MCV 90.9 fL (80.0-100.0); MEAN PLATELET VOLUME 12.9 fL (7.4-10.4); MONOCYTES 10.9 % (2-11); NEUTROPHILS 57.4 % (40-80); PLATELET COUNT 118 10x3/uL (130-400); RBC 4.08 10x6/uL (4.00-5.40); RDW 14.1 % (11.5-14.5); WBC 7.6 10x3/uL (4.8-10.8)
[2019-07-10 06:53] LABS: CALCIUM 8.8 mg/dL (8.5-10.1); CARBON DIOXIDE 31.7 mmol/L (21.0-32.0); POTASSIUM - SERUM 3.7 mmol/L (3.5-5.1)
--- NOTE | 2019-07-10 08:00 | NUR ---
SHIFT ASSMT COMPLETED.SITTING UP IN BED.CL IN REACH.MEAL SET-UP PROVIDED.
--- NOTE | 2019-07-10 09:36 | NUR ---
PATIENT ADMITTED TO REHAB FROM ACUTE FLOOR. HER PCP IS DR. CARPIO. DME AT HOME IS A WALKER. PATIENT LIVES WITH HER SON AND DISCHARGE PLANS ARE FOR HER TO RETURN THERE.
[2019-07-10 13:38] VITALS: Ht 170.2 cm; Wt 70.3 kg
[2019-07-10 15:02] VITALS: BP 126/63
--- NOTE | 2019-07-10 16:18 | RHP ---
PATIENT: SALINA LAGUNAS MEDICAL RECORD: [id number] ACCOUNT: [id number] LOCATION:[facility]1118 : 33 ADMISSION DATE: 07/09/19 REHABILITATION HISTORY AND PHYSICAL EXAMINATION POST ADMISSION PHYSICIAN EXAMINATION POST ADMISSION PHYSICAL EXAMINATION AND HISTORY AND PHYSICAL DATE OF ADMISSION: 07/09/2019 ADMITTING DIAGNOSIS: Disuse myopathy. HISTORY OF PRESENT ILLNESS: The patient is an 83-year-old female patient, who has coronary artery status post coronary artery bypass grafting back in 2004, got a history of hypertension, hyperlipidemia, diabetes, and dementia. Her son brought her to her PCP's office secondary to a cold right lower extremity that he first noticed feeling cold compared to her left lower extremity on July 02. She was admitted to the hospital, where she was placed on heparin drip and started a workup for peripheral arterial disease. She had an IR consult for right leg with arterial occlusion, status post arteriogram on July 03 with thrombolysis and TPA infusion overnight. Brought back for repeat arteriogram on July 04 and angioplasty and stent placement. TPA therapy was again infused to her distal superficial femoral artery with improvement to her right lower extremity ischemic changes. She did have return of warmth and improved color, some pedal pulses that were obtained. IR did a followup arteriogram on July 05 for catheter and sheath removal. She had placement of 3 stents in the superficial femoral artery, posterior tibial artery, and popliteal and peroneal arteries. She was also found to be in atrial fib. Had cardiology consult. She was continued on blood thinners and has had telemetry during her stay. She has been seen and followed by PT and speech therapy throughout her stay. She has been progressing well. She needs to be monitored closely for any signs of bleeding with anticoagulation therapy. Monitor for circulatory disorders, pain control. She does have a history of dementia and has had some confusion and acute mental status change during her stay. Need to monitor her lab values, monitor her blood sugar. She has proximal muscle weakness, balance deficits, decreased activity tolerance, decreased range of motion, decreased strength, gait disturbance, limited safety awareness, medical complexity, inability to care for herself and lives with a daughter with self-care deficits. These are all barriers to her discharge home. Lives at home with her son. She was completely independent with her ADLs prior to this, using a rolling walker. She is currently set up for mod assist for ADLs, mod assist for mobility. She and her family would like to return home at her prior level of functioning or better. Comorbidities include peripheral vascular disease, dementia, diabetes, history of coronary artery disease, atrial fib, CHF, and confusion. PAST MEDICAL HISTORY: Significant for coronary artery disease, diabetes, dementia, hypothyroidism, skin cancer, congestive heart failure. PAST SURGICAL HISTORY: Includes coronary artery bypass grafting, stents, and skin cancer removal. ALLERGIES: No known drug allergies. CURRENT MEDICATIONS: Include vitamin D 50,000 units weekly. Insulin, she is on 11 units of Humalog with dinner. Isosorbide 30 mg daily, Plavix 75 mg daily, HISTORY AND PHYSICAL [id number] POYE,SALINA Mavik 1 mg daily, Lasix 40 mg daily, omega-3 one cap daily, aspirin 81 mg daily, lispro Humalog 5 units subcutaneous prior to meals, Lantus 50 units daily, Synthroid 112 mcg daily, polyethylene glycol 17 grams in 8 ounces of water daily, metoprolol 25 mg b.i.d., and Pepcid 20 mg b.i.d. HABITS: No alcohol or tobacco use. FAMILY HISTORY: Noncontributory. SOCIAL HISTORY: The patient hopes to return back home and get back to her prior level of functioning. REVIEW OF SYSTEMS: GENERAL: Does complain of weakness and fatigue. HEENT: Denies cold, cough, or congestion. CARDIOVASCULAR: Denies any chest pain. PHYSICAL EXAMINATION: VITAL SIGNS: Stable, afebrile. GENERAL: An elderly female, in no acute distress upon exam. HEENT: Normocephalic and atraumatic. Mucosa moist. NECK: Supple. No lymphadenopathy. LUNGS: Clear at this time. No wheezing, rhonchi, or rales. HEART: Irregular rate and rhythm. No murmurs, rubs or gallops. ABDOMEN: Soft, benign, nondistended. Positive bowel sounds times 4. EXTREMITIES: No clubbing, cyanosis or edema. She does have changes consistent with peripheral vascular disease with decreased hair in areas. NEUROLOGIC: She does have noted weakness. LABORATORY DATA: Her white cell count is 7.6, H&H 12 and 37, and platelet count is 118. Her sodium is 139, potassium 3.7, BUN and creatinine of 26 and 1.0, and blood sugar is noted to be 146. 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 The patient has potential to make improvement. We will institute the following multidisciplinary therapies including, but not limited to, physical, occupational, respiratory, speech, nutritional services, prosthetics, and orthotics. Given her complex medical condition and risks for more complications, rehabilitation services cannot be provided at a lower level of care such as a skilled nurse facility. PLAN: 1. Admit to [facility] for an inpatient therapy to include the following disciplines; A. Physical therapy to improve gait, all transfer skills, and bed mobility to modified independent level. B. Occupational therapy to improve activities of daily living. C. Case management to assist with discharge planning and placement options. D. Nutrition to assist with nutritional needs. E. Rehabilitation nursing to assist in monitoring the patient's underlying medical conditions and to assist with any type of bowel or bladder management. 2. The patient's current medications and medical care will be continued. 3. The patient will be placed on standard fall precautions. 4. The patient's estimated length of stay is approximately 7-10 days. HISTORY AND PHYSICAL [id number] SALINA LAGUNAS 5. We will watch for any signs of bleeding. We make sure that she does not have any reocclusion of her peripheral vascular disease and I will see her again in the a.m. TRANSINT:[id number] Voice Confirmation ID: [id number] DOCUMENT ID: [id number] ETHAN notes whether there has been none or any medical/functional change since admission: - No change since prescreen. ETHAN attests patient continues to be appropriate for IRF: - Continues to be appropriate. BRIDGER MERRITT MD at 1618 CC: [id number] DICTATION DATE: 07/10/19 0831 SALES REPRESENTATIVE GROCERIES: 07/10/19 0953 ADM IN [facility] [address] [place] [address]
--- NOTE | 2019-07-10 19:51 | NUR ---
AWAKE AND ALERT. SITTING IN WHEELCHAIR. RESPIRATIONS UNLABORED. NO ACUTE DISTRESS NOTED. CALL LIGHT IN REACH. HERE VISITING.
[2019-07-11 00:07] VITALS: BP 160/81
--- NOTE | 2019-07-11 02:31 | NUR ---
SLEEPING IN BED WITH RESPIRAITONS UNLABORED. NO DISTRESS NOTED.
--- NOTE | 2019-07-11 04:53 | NUR ---
RESTING IN BED. REMAINS CONFUSED AT TIMES AND DISORIENTED TO TIME. GETS OUT OF BED WITHOUT CALLING FOR ASSISTANCE. REMINDED OFTEN TO ALWAYS CALL FOR ASSISTANCE. RESPIRATIONS UNLABORED. NO DISTRESS NOTED. CALL LIGHT IN REACH. BED ALARM ON.
--- NOTE | 2019-07-11 08:00 | NUR ---
AWAKE.ASSISTED UP OOB TO CHAIR.BREAKFAST GIVEN.
[2019-07-11 09:00] LABS: BASOPHILS 0.2 % (0-2); EOSINOPHILS 2.8 % (0-7); HEMATOCRIT 41.5 % (36.0-48.0); HEMOGLOBIN 13.7 g/dL (12-16); IMMATURE GRANULOCYTES 0.5 % (0-5); LYMPHOCYTES 25.9 % (15-50); MCH 30.2 pg (26.0-34.0); MCV 91.6 fL (80.0-100.0); MEAN PLATELET VOLUME 12.9 fL (7.4-10.4); MONOCYTES 9.1 % (2-11); NEUTROPHILS 61.5 % (40-80); RBC 4.53 10x6/uL (4.00-5.40); RDW 14.7 % (11.5-14.5); WBC 8.4 10x3/uL (4.8-10.8)
[2019-07-11 09:13] LABS: ANION GAP 8.7 mmol/L (8-16); CALCIUM 9.2 mg/dL (8.5-10.1); CARBON DIOXIDE 33.1 mmol/L (21.0-32.0); CREATININE - SERUM 1.1 mg/dL (0.6-1.3); POTASSIUM - SERUM 3.8 mmol/L (3.5-5.1)
[2019-07-11 09:24] LABS: PLATELET COUNT 160 10x3/uL (130-400)
[2019-07-11 09:36] VITALS: BP 155/75
--- NOTE | 2019-07-11 15:39 | NUR ---
CARE TEAM MEETING: PATIENT IS NEW TO UNIT AND WILL BE RA AT NEXT MEETING.TENATIVE DISCHARGE DATE IS 07/19/19. WILL CONTINUE TO FOLLOW WITH PATIENT.
--- NOTE | 2019-07-11 19:25 | NUR ---
PT LYING IN BED CL IN REACH. DENIES NEEDS OR PAIN AT THIS TIME. BED IN LOW SIDE RAILS X2. CONFUSED. BED ALARM ON. RESP EVEN AND UNLABORED. LUNGS CLEAR. BOWEL ACTIVE X4. WILL CONTINUE TO MONITOR.
[2019-07-11 20:43] VITALS: BP 133/49
[2019-07-12 09:21] VITALS: BP 185/71
--- NOTE | 2019-07-12 18:07 | NUR ---
SITTING UP ON SIDE OF BED EATING SUPPER. HAS DISORGANIZED BEHAVIOR. SEEMS TO BE MORE CONFUSED THIS LATE AFTERNOON. KEEPS SETTING OFF BED AND CHAIR ALARMS. CAN BE REDIRECTED BUT SHE CANT REMEMBER WHAT WAS JUST SAID.
--- NOTE | 2019-07-12 19:20 | NUR ---
PT SITTING UP ON SIDE OF BED. ASSISTED TO AND FROM BATHROOM. PT BACK IN BED. CL IN REACH. DENIES FURTHER NEEDS OR PAIN. BED IN LOW SIDE RAILS X2. LUNGS CLEAR. BOWEL ACTIVE X4. A/O X2. CONFUSED. RESP EVEN AND UNLABORED. WILL CONTINUE TO MONITOR.
[2019-07-12 22:57] VITALS: BP 137/64
--- NOTE | 2019-07-13 04:19 | NUR ---
I have reviewed this patient and I concur with the Shift Assessment completed by the Licensed Practical Nurse today this shift.
[2019-07-13 07:12] LABS: BASOPHILS 0.3 % (0-2); HEMATOCRIT 42.1 % (36.0-48.0); HEMOGLOBIN 13.7 g/dL (12-16); IMMATURE GRANULOCYTES 0.2 % (0-5); LYMPHOCYTES 30.9 % (15-50); MCH 30.6 pg (26.0-34.0); MCHC 32.5 g/dL (31.0-37.0); MEAN PLATELET VOLUME 12.2 fL (7.4-10.4); MONOCYTES 11.8 % (2-11); NEUTROPHILS 54.8 % (40-80); PLATELET COUNT 142 10x3/uL (130-400); RBC 4.47 10x6/uL (4.00-5.40)
[2019-07-13 07:18] LABS: MCV 94.2 fL (80.0-100.0)
[2019-07-13 07:40] LABS: ANION GAP 11.2 mmol/L (8-16); CARBON DIOXIDE 29.6 mmol/L (21.0-32.0); CREATININE - SERUM 1.1 mg/dL (0.6-1.3); POTASSIUM - SERUM 3.8 mmol/L (3.5-5.1)
--- NOTE | 2019-07-13 08:46 | NUR ---
SITTING UP IN BED RESTING QUIETLY. ATE BREAKFAST ALREADY. IS CONFUSED BUT PLEASANT. DENIES PAIN. CALL LIGHT IN REACH. BED AND CHAIR ALARMS IN PLACE.
--- NOTE | 2019-07-13 08:50 | NUR ---
NUTRITION F/U CHART REVIEWED. PT VISIT. TOLERATING DIABETIC DIET WITH 100% INTAKE BREAKFAST. REPORTS GOOD APPETITE, NO COMPLAINTS. WILL CONTINUE TO PROVIDE DIET, MONITOR PO INTAKE. RD FOLLOWING
[2019-07-13 09:52] VITALS: BP 213/66
--- NOTE | 2019-07-13 14:21 | NUR ---
RESTING QUIETLY IN BED. EYES CLOSED. BED ALARM IN PLACE. SIDE RAILS UP X2.
--- NOTE | 2019-07-13 19:12 | NUR ---
PT LYING IN BED. IN ROOM. CL IN REACH. BED ALARM ON. DENIES NEEDS OR PAIN AT THIS TIME. BED IN LOW SIDE RAILS X2. LUNGS CLEAR. BOWEL ACTIVE X4. A/O X1. CONFUSED WITH TIME AND SITUATION. WILL CONTINUE TO MONITOR.
[2019-07-14 02:18] VITALS: BP 130/85
--- NOTE | 2019-07-14 02:19 | NUR ---
I have reviewed this patient and I concur with the Shift Assessment completed by the Licensed Practical Nurse today this shift.
[2019-07-14 08:00] VITALS: BP 151/76
--- NOTE | 2019-07-14 08:00 | NUR ---
SHIFT ASSMT COMPLETED.BREAKFAST GIVEN.CL IN REACH.
--- NOTE | 2019-07-14 12:00 | NUR ---
SITTING UP IN CHAIR.ALARM WAS SET AND RESPONDED TO ALARM SOUNDING.NOTED PT WAS STANDING AND GETING BACK TO BED.CAUTIONED AND EXPLAINED NOT TO BE UP W/O HELP.SHE STATED OK.
--- NOTE | 2019-07-14 17:08 | NUR ---
AWAKE GETTING UP AND DOWN,SETTING ALARM OFF.PLEASANT.
--- NOTE | 2019-07-14 18:31 | NUR ---
PT IN BED FAMILY VISITING, PLEASANT, NO NEEDS VERBALIZED, FALL PRECAUTIONS IN PLACE
[2019-07-14 20:13] VITALS: BP 146/65
[2019-07-15 08:00] VITALS: BP 161/64
--- NOTE | 2019-07-15 08:00 | NUR ---
SHIFT ASSMT COMPLETED.BREAKFAST GIVEN.ASSISTED UP OOB TO BATHROOM AND BACK.SITTING UP IN WC.ALARM ON.CL IN REACH.
--- NOTE | 2019-07-15 12:00 | NUR ---
UP OOB TO WC.LUNCH GIVEN.
[2019-07-15 19:41] VITALS: BP 127/53
--- NOTE | 2019-07-15 23:53 | NUR ---
PT UP IN CHAIR, FALL PRECAUTIONS IN PLACE, GREETED PT, PLACED NAME ON BOARD NO NEEDS NOTED
[2019-07-16 06:48] LABS: BASOPHILS 0.1 % (0-2); EOSINOPHILS 2.1 % (0-7); HEMATOCRIT 38.5 % (36.0-48.0); HEMOGLOBIN 12.4 g/dL (12-16); IMMATURE GRANULOCYTES 0.4 % (0-5); LYMPHOCYTES 29.3 % (15-50); MCH 30.2 pg (26.0-34.0); MCHC 32.2 g/dL (31.0-37.0); MCV 93.9 fL (80.0-100.0); MEAN PLATELET VOLUME 12.8 fL (7.4-10.4); MONOCYTES 13.5 % (2-11); NEUTROPHILS 54.6 % (40-80); PLATELET COUNT 149 10x3/uL (130-400); RDW 15.3 % (11.5-14.5); WBC 8.2 10x3/uL (4.8-10.8)
[2019-07-16 08:00] VITALS: BP 143/70
[2019-07-16 08:52] LABS: ANION GAP 8.9 mmol/L (8-16); CALCIUM 8.8 mg/dL (8.5-10.1); CARBON DIOXIDE 29.2 mmol/L (21.0-32.0); CREATININE - SERUM 1.1 mg/dL (0.6-1.3); POTASSIUM - SERUM 4.1 mmol/L (3.5-5.1)
--- NOTE | 2019-07-16 09:47 | NUR ---
SITTING UP IN BED RESTING QUIETLY. SHE IS PLEASANTLY CONFUSED. DENIES PAIN OR NEEDS. CALL LIGHT IN REACH
--- NOTE | 2019-07-16 18:01 | NUR ---
SITTING UP IN WC IN ROOM FINISHING SUPPER. DENIES NEEDS. COOPERATIVE. CALL LIGHT IN REACH
--- NOTE | 2019-07-16 19:19 | NUR ---
PT IN BED ASLEEP, AWAKENS TO VOICE, NO NEEDS NOTED, ALARMS ON AND WORKING, FALL PRECAUTIONS IN PLACE
--- NOTE | 2019-07-17 03:27 | NUR ---
PT ASLEEP, BED IN LOW POSITION,NO NEEDS NOTED,FLUIDS AND CALL LIGHT WITHIN REACH
[2019-07-17 06:56] VITALS: BP 106/60
[2019-07-17 08:03] VITALS: BP 143/63
--- NOTE | 2019-07-17 12:32 | NUR ---
SITTING UP EATING LUNCH IN ROOM. IS ORIENTED X3. DENIES NEEDS OR PAIN. CALL LIGHT IN REACH
--- NOTE | 2019-07-17 13:44 | NUR ---
HAD N/V, REFUSED LUNCH, ZOFRAN GIVEN. IT HELPED SOME. SHE DID HAVE LOOSE STOOLS ALSO. VERY WEAK. FSBS 138. MOVED TO BED. SHE WAS STILL THROWING UP WHAT LOOKED LIKE BILE AND UNDIGESTED EGGS FROM BREAKFAST. WILL CONTINUE TO MONITOR.
--- NOTE | 2019-07-17 14:29 | NUR ---
RESTING QUIETLY IN BED. APPEARS TO BE SLEEPING. SMALL AMOUNT OF BILE COLORED EMESIS NOTED IN BASIN. SHE IS ALMOST AT 90 DEGREE ANGLE WITH CALL LIGHT IN REACH. WILL CONTINUE TO MONITOR.
--- NOTE | 2019-07-17 17:47 | NUR ---
STILL HAS SOUR STOMACH AND NOT EATING SUPPER. NO N/V SO FAR.
--- NOTE | 2019-07-17 19:22 | NUR ---
PT SITTING UP IN BED. VISITOR IN ROOM. CL IN REACH. BED IN LOW SIDE RAILS X2. DENIES NEEDS AT THIS TIME. RESP EVEN AND UNLABORED. CONFUSED A/O X1. LUNGS CLEAR. BOWEL ACTIVE X4. WILL CONTINUE TO MONITOR.
[2019-07-17 20:48] VITALS: BP 125/67
--- NOTE | 2019-07-18 01:15 | NUR ---
PT LYING IN BED EYES CLOSED RESTING. RR EVEN AND UNLABORED. CL IN REACH
--- NOTE | 2019-07-18 05:53 | NUR ---
I have reviewed this patient and I concur with the Shift Assessment completed by the Licensed Practical Nurse today this shift.
[2019-07-18 07:23] LABS: BASOPHILS 0.3 % (0-2); EOSINOPHILS 2.1 % (0-7); HEMATOCRIT 38.4 % (36.0-48.0); HEMOGLOBIN 12.4 g/dL (12-16); IMMATURE GRANULOCYTES 0.1 % (0-5); LYMPHOCYTES 31.4 % (15-50); MCH 30.3 pg (26.0-34.0); MCHC 32.3 g/dL (31.0-37.0); MCV 93.9 fL (80.0-100.0); MEAN PLATELET VOLUME 12.5 fL (7.4-10.4); MONOCYTES 11.2 % (2-11); NEUTROPHILS 54.9 % (40-80); PLATELET COUNT 151 10x3/uL (130-400); RBC 4.09 10x6/uL (4.00-5.40); RDW 15.2 % (11.5-14.5); WBC 7.2 10x3/uL (4.8-10.8)
[2019-07-18 07:38] LABS: ANION GAP 9.6 mmol/L (8-16); CALCIUM 9.2 mg/dL (8.5-10.1); CARBON DIOXIDE 31.4 mmol/L (21.0-32.0); CREATININE - SERUM 1.2 mg/dL (0.6-1.3)
--- NOTE | 2019-07-18 08:00 | NUR ---
SHIFT ASSMT COMPLETED.CL IN REACH.BREAKFAST GIVEN WITH MEAL SET-UP PROVIDED.
--- NOTE | 2019-07-18 12:00 | NUR ---
SITTING UP IN WC EATING LUNCH.SON AT BEDSIDE.
--- NOTE | 2019-07-18 14:25 | NUR ---
Nutrition Follow-up: Diet: Diabetic PO intake: ~67% x last 9 meals; she is having some difficulty with her memory but states that she feels like she is eating enough. Last BM: 07/14/19. WT: 155# (07/10/19), no new WT Meds noted: lasix, humalog, lantus. Labs noted: GFR 45(L), Glu 114(H). Recommend continue current diet. Encourage PO intake. RD following.
--- NOTE | 2019-07-18 14:35 | NUR ---
CARE TEAM MEETING: PATIENT FAMILY ATTENDED THE MEETING. QUESTIONS AND CONCERNS WERE ADDRESSED. [facility] DISHCARGE DATE IS 07/20/19 . WILL CONTINUE TO FOLLOW WITH PATIENT.
--- NOTE | 2019-07-18 19:22 | NUR ---
AWAKE AND ALERT. RESTING IN BED RESPIRATIONS UNLABORED. NO DISTRESS NOTED. CALL LIGHT IN REACH.
--- NOTE | 2019-07-19 01:11 | NUR ---
RESTING IN BED WITH EYES CLOSED AND RESPIRATIONS UNLABORED. NO DISTRESS NOTED. CALL LIGHT IN REACH.
--- NOTE | 2019-07-19 02:43 | NUR ---
CONTINUES SLEEPING WITH RESPIRATIONS UNLABORED. NO DISTRESS NOTED.
--- NOTE | 2019-07-19 05:38 | NUR ---
QUIET HOURS. NO ACUTE CHANGES IN CONDITION THIS SHIFT. NO DISTRESS NOTED. CALL LIGHT IN REACH.
[2019-07-19 07:37] VITALS: BP 136/82
--- NOTE | 2019-07-19 08:00 | NUR ---
SHIFT ASSMT COMPLETED.
--- NOTE | 2019-07-19 14:00 | NUR ---
MOVED TO ROOM 1113A CLOSER TO DESK.GETTING UP OOB ROAMING.ALARM ON.
--- NOTE | 2019-07-19 17:13 | NUR ---
CALMER AFTER MOVING ROOMS BUT STILL REMAINS CONFUSED
--- NOTE | 2019-07-19 18:10 | NUR ---
PT IN BED,MENU GIVEN, FALL PRECAUTIONS IN PLACE ON AND WORKING, NO NEEDS NOTED
[2019-07-20 02:53] VITALS: BP 162/72
--- NOTE | 2019-07-20 04:21 | NUR ---
PT ASLEEP IN BED,NO NEEDS NOTED,AROUSES TO VOICE,FLUIDS AND CALL LIGHT WITHIN REACH
--- NOTE | 2019-07-20 08:00 | NUR ---
PT RESTING IN BED WITH EYES OPEN CALL LIGHT IN REACH WILL MONITER
[2019-07-20 08:26] VITALS: BP 170/77
--- NOTE | 2019-07-20 11:45 | NUR ---
PATIENT DISCHARGING HOME TODAY WITH FAMILY. [facility] WILL PROVIDE THERAPY AT HOME. NO NEW DME NEEDED AT THIS TIME. DR. CARPIO 07/26/19 @ 11:40. PATIENT CHOICE FORM FOR HOME HEALTH SIGNED AND COMPARE DATA NOT REVIEWED PATIENT FAMILY HAS CHOSEN [facility] [employer]. [facility] FORM SIGNED AND EXPLAINED, ONE FORM GIVEN TO FAMILY AND ONE FILED IN CHART. DISCHARGE INSTRUCTIONS FAXED TO PCP, HOME HEALTH AND REVIEWED WITH FAMILY AND PATIENT.
--- NOTE | 2019-07-20 12:30 | NUR ---
PT DCD TO HOME VIA WHEELCHAIR WITH SON DISCHARGE SUMMARY AND MEDS REVIEWED WITH SON. NO QUESTIONS MEDS CALLED TOO JILLIAN LAWSON
== END 2019-07-20 14:22 | disposition home health service (06) | DRG 93 ==
LOC: D.REHAB 16:59
PROVIDERS: ADMIT Emergency Medicine; ATTEND Emergency Medicine
DX: G72.89 Other specified myopathies (principal); F03.90 Unspecified dementia, unspecified severity, without behavioral disturbance, psychotic disturbance, mood disturbance, and anxiety; E78.5 Hyperlipidemia, unspecified; E11.9 Type 2 diabetes mellitus without complications; I25.10 Atherosclerotic heart disease of native coronary artery without angina pectoris; M62.81 Muscle weakness (generalized); R26.9 Unspecified abnormalities of gait and mobility; I73.9 Peripheral vascular disease, unspecified; I11.0 Hypertensive heart disease with heart failure; I50.9 Heart failure, unspecified; R53.1 Weakness; I48.91 Unspecified atrial fibrillation; R41.0 Disorientation, unspecified

== ENCOUNTER 2019-10-22 14:34 | Inpatient (IN) | payer MEDICARE, BC ==
[2019-10-22] VITALS (9 sets, daily range): BP systolic 125–166; BP diastolic 65–94; BMI 27.1
[~2019-10-22] VITALS: Ht 170.2 cm; Wt 78.5 kg
--- NOTE | ~2019-10-22 | HEMODYNAMI ---
PATIENT:SALINA LAGUNAS MEDICAL RECORD: [id number] : 31 [facility] ADMISSION DATE: 10/22/19 Generatedon:10/23/201918:02 Patient name: SALINA LAGUNAS Patient #: [id number] SSN: : Date of study: 10/23/2019 Page: Of Hemodynamic Procedure Report Patient Data Patient Demographics Procedure consent was obtained First Name: SALINA Gender: Female Last Name: JANNETH : 1935 Patient #: [id number] Age: 84 year(s) Race: Unknown Additional ID: [id number] Contact details Address: [address] [address] State: [place] City: [place] Zip code: [address] Past Medical History Allergies: No known allergies Admission Admission Data Admission Date: 10/22/2019 Admission Time: 16:20 Room #: [facility] Procedure Procedure Types Cath Procedure Peripheral vascular Intervention Thrombolysis/Thrombectomy Thrombolysis Arterial Initial Day Procedure Description Procedure Date Procedure Date: 10/23/2019 Procedure Start Time: 15:45 Procedure End Time: 18:02 Procedure Staff Name Function Aurelio Wood MD Performing Physician SALMA MONTERO RT Monitor Hollis Baugh RT Scrub Katia CAUSEY RN Nurse Procedure Data Cath Procedure Fluoroscopy Diagnostic fluoroscopy Total fluoroscopy Time: time: 22.7 min 22.7 min Diagnostic fluoroscopy Total fluoroscopy dose: 566 dose: 566 mGy mGy Contrast Material Contrast Material Type Amount (ml) Isovue 300 230 Entry Location Entry Primary Successful Side Size Upsize Upsize Entry Closure Succes sful Closure Location (Fr) 1 (Fr) 2 (Fr) Remarks Device Remarks Femoral Left 6 Fr 6 Fr artery Short Short Femoral Right 6 Fr 6 Fr 6 Fr artery Short Long Short Procedure Medications Medication Administration Route Dosage Versed I.V. 0.5 mg Heparin Bolus I.V. 5000 units Versed I.V. 0.5 mg Fentanyl 25 mcg Fentanyl 25 mcg Fentanyl 25 mcg Versed I.V. 0.5 mg Heparin Bolus I.V. 2000 units Fentanyl 25 mcg Nitroglycerin IC/IA I.A. 300 mcg Hemodynamics Rest Heart Rate: 31 (bpm) Snapshots Pre Cath Intra NCS Post Cath Vital Signs Time Heart Resp SPO2 etCO2 NIBP (mmHg) Rhythm Pain Sedation Rate (ipm) (%) (mmHg) Status Level (bpm) 15:25:08 99 37 0 No Cuff NSR 0 (11) 9(A) , No pain 15:29:24 94 19 0 91/46(63) NSR 0 (11) 9(A) , No pain 15:33:34 100 45 12.8 81/53(63) NSR 0 (11) 9(A) , No pain 15:38:33 97 64 1.5 89/30(70) NSR 0 (11) 9(A) , No pain 15:43:32 95 10 3.7 Measuring NSR 0 (11) 9(A) , No pain 15:44:11 97 19 4.5 Out of range NSR 0 (11) 9(A) , No pain 15:48:39 103 15 23.3 176/136(151) NSR 0 (11) 9(A) , No pain 15:53:03 92 14 87 18.8 121/53(75) NSR 0 (11) 9(A) , No pain 15:57:17 92 29 92 0 99/50(72) NSR 0 (11) 9(A) , No pain 16:01:37 93 11 84 2.2 101/26(56) NSR 0 (11) 9(A) , No pain 16:05:41 87 30 99 2.2 111/72(89) NSR 0 (11) 9(A) , No pain 16:09:49 90 17 83 17.3 128/85(90) NSR 0 (11) 9(A) , No pain 16:14:01 98 16 71 1.5 123/90(117) NSR 0 (11) 9(A) , No pain 16:18:21 93 19 81 0 126/56(114) NSR 0 (11) 9(A) , No pain 16:22:21 103 27 100 0.7 109/94(105) NSR 0 (11) 9(A) , No pain 16:26:37 90 26 100 4.5 109/51(59) NSR 0 (11) 9(A) , No pain 16:30:49 89 21 100 0.7 91/47(60) NSR 0 (11) 9(A) , No pain 16:34:59 82 18 100 20.3 105/50(75) NSR 0 (11) 9(A) , No pain 16:39:58 95 12 100 11.3 Measuring NSR 0 (11) 9(A) , No pain 16:40:10 91 14 100 11.3 58/35(44) NSR 0 (11) 9(A) , No pain 16:41:40 87 20 100 2.2 82/60(75) NSR 0 (11) 9(A) , No pain 16:42:33 89 12 100 0 102/63(74) NSR 0 (11) 9(A) , No pain 16:46:43 84 25 100 16.5 102/63(75) NSR 0 (11) 9(A) , No pain 16:50:57 84 17 100 21.1 90/54(70) NSR 0 (11) 9(A) , No pain 16:55:09 87 21 100 11.3 87/42(64) NSR 0 (11) 9(A) , No pain 16:56:43 91 15 100 0 98/51(71) NSR 0 (11) 9(A) , No pain 17:00:53 85 33 100 1.5 84/68(79) NSR 0 (11) 9(A) , No pain 17:03:19 91 12 100 0 98/52(73) NSR 0 (11) 9(A) , No pain 17:07:30 83 23 100 21.1 110/53(76) NSR 0 (11) 9(A) , No pain 17:12:30 85 20 100 23.3 Measuring NSR 0 (11) 9(A) , No pain 17:12:42 79 22 100 23.3 88/50(65) NSR 0 (11) 9(A) , No pain 17:16:42 88 24 100 20.3 105/84(104) NSR 0 (11) 9(A) , No pain 17:20:56 77 18 100 0 109/53(68) NSR 0 (11) 9(A) , No pain 17:25:14 84 18 0 94/47(68) NSR 0 (11) 9(A) , No pain 17:30:11 80 23 100 15 110/44(67) NSR 0 (11) 9(A) , No pain 17:34:22 81 29 100 21.1 122/64(83) NSR 0 (11) 9(A) , No pain 17:39:15 88 20 100 9.7 108/88(105) NSR 0 (11) 9(A) , No pain 17:43:27 80 20 100 22.6 95/59(72) NSR 0 (11) 9(A) , No pain 17:47:35 79 22 100 19.5 109/59(82) NSR 0 (11) 9(A) , No pain 17:51:49 78 39 100 20.3 115/60(92) NSR 0 (11) 9(A) , No pain 17:56:07 98 13 88 21.8 95/79(85) NSR 0 (11) 9(A) , No pain 18:01:06 94 21 100 18 Measuring NSR 0 (11) 9(A) , No pain 18:02:06 95 29 100 0 Out of range NSR 0 (11) 9(A) , No pain Medications Time Medication Route Dose Verified Delivered Reason Notes Ef fectiveness by by 15:48:42 Versed I.V. 0.5 Aurelio Montalvo for sedation mg PADILLA Wood MD RN 16:01:19 Heparin Bolus I.V. 5000 Aurelio Ryanr units PADILLA Wood MD RN 16:27:29 Versed I.V. 0.5 Aurelio Davisr for sedation mg PADILLA Wood MD RN 16:27:42 Fentanyl 25 Aurelio Davisr for sedation mcg PADILLA Wood MD RN 16:39:54 Fentanyl 25 Aurelio Montalvo for sedation mcg PADILLA Wood MD RN 17:01:30 Fentanyl 25 Aurelio Montalvo for sedation mcg PADILLA Wood MD RN 17:19:09 Versed I.V. 0.5 Aurelio Montalvo for sedation mg PADILLA Wood MD RN 17:28:24 Heparin Bolus I.V. 2000 Aurelio Montalvo for units PADILLA Wood anticoagulation RN 17:33:30 Fentanyl 25 Aurelio Montalvo for sedation mcg PADILLA Wood MD RN 17:37:04 Nitroglycerin I.A. 300 Aurelio Carey used for IC/IA mcg Nina Wood MD procedure MD Procedure Log Time Note 15:00:49 Use device set IR Diagnostic 15:01:00 ACIST Syringe (12362) opened to sterile field. 15:01:01 ACIST Hand Control (11244) opened to sterile field. 15:01:01 ACIST Manifold (38084) opened to sterile field. 15:01:02 Bag Decanter (2002S) opened to sterile field. 15:01:02 Sterile Angiographic Pack opened to sterile field. 15:01:03 Tegaderm 4 x 4 (1626W) opened to sterile field. 15:01:24 TUBING High Pressure Extension Tubing (Puente) (VQ8940L) opened to sterile field. 15:01:25 ARTHUR 260 wire (V20026) opened to sterile field. 15:01:34 - 15:23:22 SALMA SANDOVAL (R) sent for patient. Start room use. 15:23:34 Time tracking: Regular hours (M-F 7:00 - 5:00) 15:23:45 Plan of Care:Hemodynamics will remain stable., Cardiac rhythm will remain stable., Comfort level will be maintained., Respiratory function will remain adequate., Patient/ family verbilizes understanding of procedure., Procedure tolerated without complication., Recovers from procedure without complications.. 15:24:00 Patient received from ICU to IR Alert and oriented. Tansferred to table in Supine position. 15:24:13 Signed procedure consent form obtained from patient. 15:24:15 Warm blankets applied, and aiden hugger turned on for patient comfort. 15:24:15 Correct patient and procedure confirmed by team. 15:24:15 ECG and BP/O2 sat monitors applied to patient. 15:24:18 Vital chart was started 15:24:21 - 15:24:30 H&P Date Dictated: 10/23/2019 Within 30 days and on chart.. :24:32 Pre-procedure instructions explained to patient. ::32 Pre-op teaching completed and patient verbalized understanding. 15:24:35 Family in waiting room. 15:24:37 Patient NPO since Midnight. 15::41 Patient allergic to No known allergies 15::43 Is the patient allergic to Iodine/contrast media? No. 15::45 Is patient on blood thinner?Yes 15::48 ACC The patient was administered the following blood thiners within the last 24 hours: ACCPlavix 15:24:51 Patient diabetic? No. 15:24:53 - 15:24:55 ----Pre-sedation anethsthesia assessment.---- 15:25:01 Previous problem with sedation/anesthesia? No ? 15:25:02 Snore? Yes 15:25:04 Sleep apnea? No 15:25:05 Deviated septum? No 15:25:08 Opens mouth fully? Yes 15:25:12 Sticks out tongue? Yes 15:25:14 Airway obstruction? No ? 15:25:16 Dentures? No ? 15:25:17 - 15:25:21 Pre procedure: right dorsailis pedis pulse 0-Absent 15::23 Pre procedure: left dorsailis pedis pulse 0-Absent 15::41 Pre procedure: right dorsailis pedis pulse 0-Absent 15::43 Pre procedure: left posterior tibial pulse 0-Absent 15:: IV patent on arrival in right forearm with 0.9% NaCl at KVO. 15::42 bilateral groin area was prepped with betadine and draped in sterile fashion :: Alarms reviewed by Chris Grimm :: Sharps counted by scrub and verified by ChrisN. 15::45 - 15:31:10 SHEATH 6FR Destination (RSR01) opened to sterile field. 15:40:45 Physician arrived 15:40:46 --------ALL STOP TIME OUT------ 15:40:47 Final Timeout: patient, procedure, and site verified with staff and physician. All members of the team are in agreement. 15:40:52 Bilateral groins site verified by team. 15:44:44 3b) 30-44 Moderately reduced kidney function. 15:45:14 Procedure started. 15:45:14 Full Disclosure recording started 15:45:57 Local anesthetic to left femerol artery with Lidocaine 1% by Aurelio Wood MD.INITIAL ACCESS ONLY 15:46:11 A 6 Fr Short sheath was inserted into the Left Femoral artery 15:46:52 SHEATH 6FR [place] (DFN143) opened to sterile field. 15:47:34 Maximum allowable contrast dose (3.7 X eGFR X 0.75)105.45 ml. 15:48:18 - 15:48:42 Versed 0.5 mg I.V. was administered by Katia CAUSEY RN; for sedation; Verbal order read back and verified. 15:49:57 Baseline sample Acquired. 16:00:05 CXI SUPPORT .035 135 CM STR catheter (H27195) opened to sterile field. 16:00:05 TORQUE DEVICE PLASTIC .038 ( TD01) opened to sterile field. 16:00:06 GLIDE WIRE ANGLE 260cm (ZK9880) opened to sterile field. 16:01:19 Heparin Bolus 5000 units I.V. was administered by Katia CAUSEY RN; ; Verbal order read back and verified. 16:02:01 CHOICE PT Extra Support J 300cm guide wire ([id number]) opened to steril e field. 16:06:06 Inflate balloon Inflation number: 1 A CHOCOLATE 3.0 x 80 x 150 balloon ([id number]) was prepped and advanced across the Undefined1 , then inflated. 16:06:35 INFLATOR BasixTOUCH (HU4728) opened to sterile field. 16:26:12 Angiodynamics Omniflush 5Fr 65cm (76825625) opened to sterile field. 16:26:13 DOC .035 wire (K68791) opened to sterile field. 16:26:13 MICROPUNCTURE 4FR Cook (E35282) opened to sterile field. 16:27:29 Versed 0.5 mg I.V. was administered by Katia CAUSEY RN; for sedation; Verbal order read back and verified. 16:27:42 Fentanyl 25 mcg was administered by Katia CAUSEY RN; for sedation; Verbal order read back and verified. 16:39:52 GLIDE CATHETER 5FR ANGLED 65cm (CG507) opened to sterile field. 16:39:54 Fentanyl 25 mcg was administered by Katia CAUSEY RN; for sedation; Verbal order read back and verified. 16:51:07 SHEATH 6FR Destination (RSR01) opened to sterile field. 16:52:33 COPILOT Valve Control (8442159) opened to sterile field. 17:00:01 Sheath upsized to a 6 Fr Long. 17:00:56 CHOICE PT Extra Support J 300cm guide wire (0096932G4) opened to steril e field. 17:01:30 Fentanyl 25 mcg was administered by Katia CAUSEY RN; for sedation; Verbal order read back and verified. 17:11:33 Inflate balloon Inflation number: 1 A NANOCROSS ELITE 2.5MM-2 MM X 210 X 150 ([id number]) was prepped and advanced across the Undefined2 , then inflated to 0 CHANTALE for 0:00 (min:sec) . 17:16:09 TORQUE DEVICE PLASTIC .038 ( TD01) opened to sterile field. 17:19:09 Versed 0.5 mg I.V. was administered by Katia CAUSEY RN; for sedation; Verbal order read back and verified. 17:19:24 ROADRUNNER .035 260 glide wire (P37601) opened to sterile field. 17:19:24 CHOICE PT Extra Support J 300cm guide wire ([id number]) opened to steril e field. 17:28:15 Inflation number: 2 The NANOCROSS ELITE 2.5MM-2 MM X 210 X 150 ([id number]) was reinflated across the Undefined3. 17:28:24 Heparin Bolus 2000 units I.V. was administered by Katia CAUSEY RN; fo r anticoagulation; Verbal order read back and verified. 17:29:03 Inflation number: 3 The NANOCROSS ELITE 2.5MM-2 MM X 210 X 150 ([id number]) was reinflated across the Undefined4. 17:33:30 Fentanyl 25 mcg was administered by Katia CAUSEY RN; for sedation; Verbal order read back and verified. 17:34:21 Inflate balloon Inflation number: 1 A CHOCOLATE 2.5 x 120 x 150 balloon ([id number]) was prepped and advanced across the Undefined4 , then inflated . 17:37:04 Nitroglycerin IC/IA 300 mcg I.A. was administered by Aurelio Wood MD; used for procedure; Verbal order read back and verified. 17:41:09 SUTURE ETHILON 2-0 BLK MONO FS opened to sterile field. 17:41:10 SUTURE ETHILON 2-0 BLK MONO FS opened to sterile field. 17:42:00 SHEATH 6FR [place] (ITW644) opened to sterile field. 17:44:31 A 6 Fr Short sheath was inserted into the Right Femoral artery 17:44:56 Sheath upsized to a 6 Fr Short. 17:45:02 Sheath upsized to a 6 Fr Short. 17:50:43 Procedure ended.(Physican Out) 17:56:41 Fluoroscopy time 22.70 minutes. 17:56:44 Fluoroscopy dose: 566 mGy 17:56:44 Flurop Dose total: 566 17:56:49 Contrast amount:Isovue 300 230ml. 17:56:50 Maximum allowable dose exceeded? Yes. 17:56:52 Sharps counted by scrub and verified by R.N. 17:57:37 Post right femoral vein:stable, clean and dry 17:57:42 Post left femerol artery:stable, clean and dry 17:57:54 Post procedure: right dorsailis pedis pulse Doppler. 17:57:56 Post procedure: right posterior tibial pulse Doppler. 17:57:59 Post procedure: left dorsailis pedis pulse Doppler. 17:58:01 Post procedure: left posterior tibial pulse Doppler. 17:58:03 Post procedure instruction explained to patient.Patient verbalizes understanding. 17:58:08 Procedure and supply charges have been captured, reviewed, submitted an d are correct. 18:01:54 Vital chart was stopped 18:01:58 Patient transfered to ICU with Bed. 18:02:01 Report given to ICU. 18:02:02 Procedure ended. 18:02:02 Full Disclosure recording stopped Intervention Summary Intervention Notes Time ActionType Lesion and Equipment Used Action# Pressure Duration Attributes 16:06:06 Inflate Undefined1 CHOCOLATE 3.0 x 1 0 00:00 balloon 80 x 150 balloon ([id number]) 17:11:33 Inflate Undefined3 NANOCROSS ELITE 1 0 00:00 balloon 2.5MM-2 MM X 210 X 150 ([id number]) 17:28:15 Reinflate Undefined3 NANOCROSS ELITE 2 0 00:00 balloon 2.5MM-2 MM X 210 X 150 ([id number]) 17:29:03 Reinflate Undefined3 NANOCROSS ELITE 3 0 00:00 balloon 2.5MM-2 MM X 210 X 150 ([id number]) 17:34:21 Inflate Undefined4 CHOCOLATE 2.5 x 1 0 00:00 balloon 120 x 150 balloon ([id number]) Device Usage Item Name Manufacture Quantity Catalog Number [facility] Part Jose nt Minimal Lot# / Charge Number Stock Stock Serial# Code ACIST Syringe Acist Medical 1 83682 944463 668038 33273 4 20 (65002) Systems Inc ACIST Hand Acist Medical 1 69515 462405 890854 07601 6 5 Control (15427) Systems Inc ACIST Manifold Acist Medical 1 87988 034009 593874 33636 2 5 (66076) Systems Inc Bag Decanter Microtek 1 2001S 231123 09151 14951 2 5 (2001S) Medical Inc. Sterile Cardinal 1 [id number] 954282 10187 0 5 Angiographic Pack Health Tegaderm 4 x 4 3M 1 1626W 174380 083846 24633 1 5 (1626W) TUBING High [employer] 1 [id number] 819367 30683 32822 9 10 Pressure Extension Tubing (Puente) (VV5707Y) ARTHUR 260 wire Cook Medical 1 A28894 218159 94804 81628 0 5 (L41179) SHEATH 6FR Terumo 2 RSR01 508729 37244 20326 9 5 Destination (RSR01) SHEATH 6FR Terumo 2 CIS364 784625 413147 69749 5 40 [place] (TRP787) CXI SUPPORT .035 Cook Medical 1 F72757 517911 416980 94760 9 5 135 CM STR catheter (P04089) TORQUE DEVICE Hertel 2 TD01 261977 588774 04679 3 5 PLASTIC .038 ( Scientific TD01) GLIDE WIRE ANGLE Terumo 1 EU3673 587733 289185 45794 3 5 260cm (RK0009) CHOICE PT Extra Hertel 3 [id number] 267969 20181107 23008 0 5 [id number] Support J 300cm Scientific [id number] guide wire ([id number]) CHOCOLATE 3.0 x Medtronic 1 [id number] 763152 695078 72441 4 5 80 x 150 balloon O ([id number]) TW INFLATOR [employer] 1 IQ9387 463021 544123 42226 1 5 BasixTOUCH (MQ4306) Angiodynamics Angiodynamics 1 23315114 202133 413692 71968 9 5 Omniflush 5Fr 65cm ([id number]) DOC .035 wire Cook [employer] 1 T13973 822294 81090 8 5 (N64787) MICROPUNCTURE 4FR [employer] 1 M71373 453808 970428 19246 3 5 Cook (T77986) GLIDE CATHETER Terumo 1 CG507 402497 48434 0 5 5FR ANGLED 65cm (CG507) COPILOT Valve Adame 1 6502708 130502 251732 71324 2 5 Control (2958663) Vascular NANOCROSS ELITE Medtronic 1 [id number] 867532 22834 1 1 2.5MM-2 MM X 210 X 150 ([id number]) ROADRUNNER .035 Cook [employer] 1 J40907 633120 356021 95100 5 5 260 glide wire (N53506) CHOCOLATE 2.5 x Medtronic 1 [id number] 487533 415659 84216 2 5 120 x 150 balloon O ([id number]) TW SUTURE ETHILON Ethicon 2 664H 575844 67791 4 5 2-0 BLK MONO FS Signature Audit [place] Stage Time Signature Unsigned Intra-Procedure 10/23/2019 SALMA MONTERO RT 6:02:23 PM (R) [id number] [place] [address]
--- NOTE | ~2019-10-22 | HEMODYNAMI ---
PATIENT:SALINA LAGUNAS MEDICAL RECORD: [id number] : 31 [facility]: 10/22/19 Generatedon:10/24/20197:53 Patient name: SALINA LAGUNAS Patient #: [id number] SSN: : Date of study: 10/24/2019 Page: Of Hemodynamic Procedure Report Patient Data Patient Demographics Procedure consent was obtained First Name: SALINA Gender: Female Last Name: JANNETH : 1935 Patient #: [id number] Age: 84 year(s) Race: Unknown Additional ID: [id number] Contact details Address: [place] [address] State: [place] City: [place] Zip code: [address] Past Medical History Allergies: No known allergies Admission Admission Data Admission Date: 10/22/2019 Admission Time: 16:20 Room #: [facility] Procedure Procedure Types Cath Procedure Peripheral Cath Diagnostic Procedure Abd/Extremity Visceral/Mesenteric Procedure Description Procedure Date Procedure Date: 10/24/2019 Procedure Start Time: 6:33 Procedure Staff Name Function Shae Lomax MD Performing Physician Hollis Baugh RT Monitor SALMA MONTERO RT Scrub Katia CAUSEY RN Nurse Procedure Data Cath Procedure Fluoroscopy Diagnostic fluoroscopy Total fluoroscopy Time: time: 10.9 min 10.9 min Diagnostic fluoroscopy Total fluoroscopy dose: dose: 1368 mGy 1368 mGy Contrast Material Contrast Material Type Amount (ml) Isovue 300 32 Procedure Medications Medication Administration Route Dosage Lidocaine 1% added to field 20 Heparin Flush Bag added to field 2 bags (1000units/500ml NS) Heparin Flush Bag added to field 1 bags (1000units/500ml NS) Versed I.V. 0.25 mg Versed I.V. 0.25 mg Versed I.V. 0.25 mg Fentanyl 25 mcg Hemodynamics Rest Heart Rate: 94 (bpm) Snapshots Pre Cath Intra NCS Post Cath Vital Signs Time Heart Resp SPO2 etCO2 NIBP (mmHg) Rhythm Pain Sedation Rate (ipm) (%) (mmHg) Status Level (bpm) 6:25:19 84 19 0 Measuring NSR 0 (11) 9(A) , No pain 6:26:33 89 18 100 0 107/55(71) NSR 0 (11) 9(A) , No pain 6:30:41 85 28 0 92/70(86) NSR 0 (11) 9(A) , No pain 6:34:51 80 24 99 0 96/54(74) NSR 0 (11) 9(A) , No pain 6:39:01 86 27 0 106/62(85) NSR 0 (11) 9(A) , No pain 6:43:17 82 24 0 79/47(58) NSR 0 (11) 9(A) , No pain 6:46:48 83 26 0 227/157(168) NSR 0 (11) 9(A) , No pain 6:50:39 80 23 0 77/36(52) NSR 0 (11) 9(A) , No pain 6:51:29 78 30 0 76/57(71) NSR 0 (11) 9(A) , No pain 6:52:20 72 16 0 85/42(67) NSR 0 (11) 9(A) , No pain 6:56:29 82 23 79 0 91/42(61) NSR 0 (11) 9(A) , No pain 7:00:44 93 21 91 0 64/30(53) NSR 0 (11) 9(A) , No pain 7:02:44 75 27 0 79/40(60) NSR 0 (11) 9(A) , No pain 7:06:54 81 28 0 81/37(65) NSR 0 (11) 9(A) , No pain 7:11:53 72 24 0 Measuring NSR 0 (11) 9(A) , No pain 7:13:03 76 23 100 0 102/47(69) NSR 0 (11) 9(A) , No pain 7:17:13 81 22 0 81/63(79) NSR 0 (11) 9(A) , No pain 7:20:03 105 23 100 0 115/103(106) NSR 0 (11) 9(A) , No pain 7:22:14 82 25 0 111/53(88) NSR 0 (11) 9(A) , No pain 7:26:32 76 27 0 107/51(71) NSR 0 (11) 9(A) , No pain 7:31:31 86 18 0 Measuring NSR 0 (11) 9(A) , No pain 7:31:43 82 23 0 64/38(58) NSR 0 (11) 9(A) , No pain 7:35:00 81 22 0 78/63(73) NSR 0 (11) 9(A) , No pain 7:39:39 83 22 0 98/85(91) NSR 0 (11) 9(A) , No pain 7:43:51 95 17 0 82/56(63) NSR 0 (11) 9(A) , No pain 7:47:54 83 22 0 82/66(71) NSR 0 (11) 9(A) , No pain 7:51:54 91 21 0 97/75(85) NSR 0 (11) 9(A) , No pain Medications Time Medication Route Dose Verified Delivered Reason Notes E ffectiveness by by 6:37:01 Lidocaine 1% added 20ml M J Long M J Long used for to vial MD procedure field 6:37:15 Heparin Flush added 2 M J Long M J Long used for Bag to bags MD procedure (1000units/500ml field NS) 6:37:17 Heparin Flush added 1 M J Long M J Long used for Bag to bags MD procedure (1000units/500ml field NS) 6:37:33 Versed I.V. 0.25 M J Long Minner for not a good mg MD PADILLA sedation waveform RN with spo2 monitor will continue to adjust the monitor to achieve a pleth that corresponds with HR. 6:37:34 Versed I.V. 0.25 M J Long Minner for mg MD PADILLA sedation RN 6:39:12 Fentanyl 25 M J Long Minner for mcg MD PADILLA sedation RN 6:39:53 Versed I.V. 0.25 M J Long Minner for When Sp02 mg MD PADILLA sedation pleth RN corresponds with HR the reading is 100%. when the waveform is flat or irratic it is not accurate and reads off or 80% Procedure Log Time Note 6:14:55 Hollis Baugh RT (R) (CV) sent for patient. Start room use. 6:15:02 Time tracking: Regular hours (M-F 7:00 - 5:00) 6:15:07 Plan of Care:Hemodynamics will remain stable., Cardiac rhythm will remain stable., Comfort level will be maintained., Respiratory function will remain adequate., Patient/ family verbilizes understanding of procedure., Procedure tolerated without complication., Recovers from procedure without complications.. 6:15:18 Patient received from ICU to IR Alert and oriented. Tansferred to table in Supine position. 6:15:21 Signed procedure consent form obtained from patient. 6:15:23 Correct patient and procedure confirmed by team. 6:15:30 Patient arrives emergently. 6:16:17 NO FAMILY TO SIGN CONSENT IS DECLARING EMERENCY DUE TO PATIENT BLEEDING 6:16:19 Full Disclosure recording started 6:16:19 6:16:23 H&P Date Dictated: 10/24/2019 Within 30 days and on chart.. 6:16:25 Pre-procedure instructions explained to patient. 6:16:26 Pre-op teaching completed and patient verbalized understanding. 6:16:29 Family unavailable. 6:16:34 Patient NPO since Midnight. 6:16:41 Use device set IR Diagnostic 6:16:43 ACIST Syringe (25003) opened to sterile field. 6:16:43 ACIST Hand Control (62392) opened to sterile field. 6:16:44 ACIST Manifold (93820) opened to sterile field. 6:16:44 Bag Decanter () opened to sterile field. 6:16:45 Sterile Angiographic Pack opened to sterile field. 6:16:48 Tegaderm 4 x 4 (1626W) opened to sterile field. 6:17:32 ECG and BP/O2 sat monitors applied to patient. 6:17:44 Is patient on blood thinner?Yes 6:17:52 Patient diabetic? No. 6:18:02 ----Pre-sedation anethsthesia assessment.---- 6:18:07 Previous problem with sedation/anesthesia? No ? 6:18:08 Snore? Yes 6:18:10 Sleep apnea? No 6:18:16 Deviated septum? No 6:18:17 Opens mouth fully? Yes 6:18:18 Sticks out tongue? Yes 6:18:21 Airway obstruction? No ? 6:18:25 Dentures? No ? 6:19:16 IV patent on arrival in right forearm with 0.9% NaCl at [facility]. 6:19:23 Right groin area was prepped with chlora-prep and draped in sterile fashion 6:19:27 Alarms reviewed by R. N. 6:19:27 Sharps counted by scrub and verified by R.N. 6:23:30 Vital chart was started 6:23:31 Baseline sample Acquired. 6:31:31 Physician arrived 6:31:31 --------ALL STOP TIME OUT------ 6:31:32 Final Timeout: patient, procedure, and site verified with staff and physician. All members of the team are in agreement. 6:31:37 Right groin site verified by team. 6:31:42 Fire Safety Assessment: A--An alcohol-based skin anteseptic being used preoperatively., C--Open oxygen or nitrous oxide is being used. 6:31:50 4) 15-29 Severley reduced kidney function. 6:32:14 Maximum allowable contrast dose (3.7 X eGFR X 0.75)44 ml. 6:33:07 Procedure started. 6:33:11 Local anesthetic to right femoral artery with Lidocaine 1% by Shae Lomax MD.INITIAL ACCESS ONLY 6:34:58 DOC .035 wire (X54475) opened to sterile field. 6:34:58 TUBING Contrast Injection High Pressure (AZJ699B) opened to sterile field. 6:34:59 TRANSEND STEERABLE wire ([id number]) opened to sterile field. 6:35:09 Angiodynamics Omniflush 5Fr 65cm (32057563) opened to sterile field. 6:37:01 Lidocaine 1% 20ml vial added to field was administered by Shae Lomax MD; used for procedure; Verbal order read back and verified. 6:37:15 Heparin Flush Bag (1000units/500ml NS) 2 bags added to field was administered by Shae Lomax MD; used for procedure; Verbal order read back and verified. 6:37:17 Heparin Flush Bag (1000units/500ml NS) 1 bags added to field was administered by Shae Lomax MD; used for procedure; Verbal order read back and verified. 6:37:32 TORQUE DEVICE PLASTIC .038 ( TD01) opened to sterile field. 6:37:32 GLIDE WIRE ANGLE 180cm (UY6629) opened to sterile field. 6:37:33 Versed 0.25 mg I.V. was administered by Katia CAUSEY RN; for sedation; not a good waveform with spo2 monitor will continue to adjust the monitor to achieve a pleth that corresponds with HR. Verbal order read back and verified. 6:37:34 Versed 0.25 mg I.V. was administered by Katia CAUSEY RN; for sedation; Verbal order read back and verified. 6:39:05 GLIDE CATHETER 5FR COBRA 65cm (CG502) opened to sterile field. 6:39:12 Fentanyl 25 mcg was administered by Katia CAUSEY RN; for sedation; Verbal order read back and verified. 6:39:53 Versed 0.25 mg I.V. was administered by Katia CAUSEY RN; for sedation; When Sp02 pleth corresponds with HR the reading is 100%. when the waveform is flat or irratic it is not accurate and reads off or 80% Verbal order read back and verified. 6:41:53 SHEATH 6FR [place] (RSR01) opened to sterile field. 6:50:29 CHOICE PT Extra Support J 300cm guide wire ([id number]) opened to sterile field. 6:58:51 COIL Concerto 2mm x 4cm ([id number]) opened to sterile field. 7:03:44 COIL Concerto 3mm x 8cm (BE53MJGMF) opened to sterile field. 7:04:12 COIL Concerto 3mm x 8cm ([id number]) opened to sterile field. 7:10:16 CHOICE PT Extra Support J 300cm guide wire (8979300G8) opened to sterile field. 7:23:55 SHEATH 6FR [place] (YUP151) opened to sterile field. 7:24:21 EXOSEAL 6Fr (EX600) opened to sterile field. 7:42:22 EXOSEAL 6Fr (EX600) opened to sterile field. 7:42:52 Procedure ended.(Physican Out) 7:43:28 Fluoroscopy time 10.90 minutes. 7:43:33 Fluoroscopy dose: 1368 mGy 7:43:33 Flurop Dose total: 1368 7:43:38 Contrast amount:Isovue 300 32ml. 7:43:46 Insertion/operative site no bleeding no hematoma. 7:43:53 Post-op/insertion site Right Femoral artery dressed using a 4 x 4 and Tegaderm. 7:43:57 Post-op/insertion site Left Femoral artery dressed using a 4 x 4 and Tegaderm. 7:44:08 Post right femoral artery:stable 7:44:13 Post left femerol artery:stable 7:44:21 Post procedure: right dorsailis pedis pulse Doppler. 7:44:24 Post procedure: left dorsailis pedis pulse Doppler. 7:53:00 Post procedure instruction explained to patient.Patient verbalizes understanding. 7:53:00 Procedure and supply charges have been captured, reviewed, submitted and are correct. 7:53:06 Report given to ICU. 7:53:09 Patient transfered to ICU with Bed. 7:53:54 Vital chart was stopped Device Usage Item Name Manufacture Quantity Catalog Number [facility] Lot# / Charge Number Stock Stock Serial# Code ACIST Syringe Acist Medical 1 85184 660952 034220 606377 20 (90388) Systems Inc ACIST Hand Acist Medical 1 83540 999051 515642 743646 5 Control Systems Inc (02788) ACIST Acist Medical 1 15246 013204 850987 444565 5 Manifold Systems Inc (62600) Bag Decanter Microtek 1 2001S 569475 52627 666133 5 () Medical Inc. Sterile Cardinal 1 [id number] 648207 354517 5 Angiographic Health Pack Tegaderm 4 x 3M 1 1626W 780153 350810 329828 5 4 (1626W) DOC .035 wire Cook Medical 1 C55171 314073 061484 5 (N31122) TUBING [facility] 1 OYH001Y 896909 926405 303887 5 Contrast Injection High Pressure (DOW039P) TRANSEND [place] 1 [id number] 682476 286932 5 [id number] STEERABLE Scientific wire ([id number]) Angiodynamics Angiodynamics 1 36097369 007855 641847 651140 5 Omniflush 5Fr 65cm (04818094) TORQUE DEVICE [place] 1 TD01 556008 772755 820704 5 PLASTIC .038 Scientific ( TD01) GLIDE WIRE Terumo 1 IX7347 052753 270059 673992 5 ANGLE 180cm (BM5936) GLIDE Terumo 1 CG502 917604 017435 5 CATHETER 5FR COBRA 65cm (CG502) SHEATH 6FR Terumo 1 RSR01 189265 21618 131281 5 Destination (RSR01) CHOICE PT [place] 2 [id number] 454281 5 77784000 Extra Support Scientific [id number] J 300cm guide wire (9758634D0) COIL Concerto Medtronic 1 NV-2-4HELIX 590356 645390 93547 5 K500209 2mm x 4cm (JO88TTNAE) COIL Concerto Medtronic 2 AF-4-3-HELIX 587524 986857 706797 5 S054416 3mm x 8cm Z699433 (BA38LBWTU) SHEATH 6FR Terumo 1 BCB068 187107 205647 445144 40 [place] (EJL334) EXOSEAL 6Fr Cardinal 2 EX600 793365 862931 347876 10 87920618 (EX600) Health [id number] Signature Audit [place] Stage Time Signature Unsigned Intra-Procedure 10/24/2019 Hollis 7:53:49 AM [place] RT (R) (CV) [facility] [address] [place] [address]
--- NOTE | ~2019-10-22 | HEMODYNAMI ---
PATIENT:SALINA LAGUNAS MEDICAL RECORD: [id number] : 31 [facility]: 10/22/19 Generatedon:10/22/201917:49 Patient name: SALINA LAGUNAS Patient #: [id number] SSN: : Date of study: 10/22/2019 Page: Of Hemodynamic Procedure Report Patient Data Patient Demographics Procedure consent was obtained First Name: SALINA Gender: Female Last Name: JANNETH : 1935 Patient #: [id number] Age: 84 year(s) Race: Unknown Additional ID: [id number] Contact details Address: [place] [address] State: [place] City: [place] Zip code: [address] Past Medical History Allergies: No known allergies Admission Admission Data Admission Date: 10/22/2019 Admission Time: 16:20 Room #: [facility] Procedure Procedure Types Cath Procedure Peripheral Cath Diagnostic Procedure Abd/Extremity Extremities Right Lower Ext Arterio Procedure Description Procedure Date Procedure Date: 10/22/2019 Procedure Start Time: 16:41 Procedure End Time: 17:49 Procedure Staff Name Function Reji Ruiz MD Performing Physician SALMA MONTERO RT Monitor Hollis Baugh RT Scrub Katia CAUSEY RN Nurse Procedure Data Cath Procedure Fluoroscopy Diagnostic fluoroscopy Total fluoroscopy Time: time: 14.8 min 14.8 min Diagnostic fluoroscopy Total fluoroscopy dose: 184 dose: 184 mGy mGy Contrast Material Contrast Material Type Amount (ml) Isovue 300 85 Entry Location Entry Primary Successful Side Size Upsize Upsize Entry Closure Succes sful Closure Location (Fr) 1 (Fr) 2 (Fr) Remarks Device Remarks Femoral Left 5 Fr artery Diagnostic catheters Device Type Used For End Catheter Placement Merit ULTRA BOLUS FLUSH 5Fr 65CM catheter ([id number]) Procedure Medications Medication Administration Route Dosage Fentanyl I.V. 25 mcg Versed I.V. 1 mg Heparin Flush Bag added to field 2 bags (1000units/500ml NS) Heparin Flush Bag added to field 1 bags (1000units/500ml NS) Heparin Bolus I.A. 3000 units Hydralizine I.V. 5 mg Hemodynamics Rest Pre Cath Intra NCS Post Cath Vital Signs Time Heart Resp SPO2 etCO2 NIBP (mmHg) Rhythm Pain Sedation Rate (ipm) (%) (mmHg) Status Level (bpm) 16:41:42 66 14 98 0.7 Measuring NSR 0 (11) 9(A) , No pain 16:41:58 72 12 98 0 186/95(159) NSR 0 (11) 9(A) , No pain 16:46:23 58 7 89 0 158/81(122) NSR 0 (11) 9(A) , No pain 16:50:39 60 15 98 21.1 153/99(128) NSR 0 (11) 9(A) , No pain 16:55:38 74 17 97 22.6 Measuring NSR 0 (11) 9(A) , No pain 16:55:58 64 18 97 0 163/85(134) NSR 0 (11) 9(A) , No pain 17:00:26 67 7 97 0 160/75(121) NSR 0 (11) 9(A) , No pain 17:04:51 81 19 97 0 160/80(125) NSR 0 (11) 9(A) , No pain 17:09:15 70 20 97 0 172/82(146) NSR 0 (11) 9(A) , No pain 17:13:43 69 13 98 0 165/88(140) NSR 0 (11) 9(A) , No pain 17:18:05 75 22 98 0 180/106(150) NSR 0 (11) 9(A) , No pain 17:22:32 80 25 99 0 187/96(161) NSR 0 (11) 9(A) , No pain 17:27:02 86 25 98 0 188/113(151) NSR 0 (11) 9(A) , No pain 17:32:01 76 21 98 0 Measuring NSR 0 (11) 9(A) , No pain 17:32:17 70 21 97 0 175/119(159) NSR 0 (11) 9(A) , No pain 17:37:16 73 13 98 0 Measuring NSR 0 (11) 9(A) , No pain 17:37:47 69 9 92 21.1 181/85(145) NSR 0 (11) 9(A) , No pain 17:42:17 61 17 98 0.7 180/90(141) NSR 0 (11) 9(A) , No pain 17:46:46 98 0 156/146(151) NSR 0 (11) 9(A) , No pain 17:49:07 98 172/88(142) NSR 0 (11) 9(A) , No pain Medications Time Medication Route Dose Verified Delivered Reason Notes Ef fectiveness by by 16:43:05 Fentanyl I.V. 25 Reji Minner for sedation mcg Sara CAUSEY MD, RN 16:43:19 Versed I.V. 1 mg Reji Minner for sedation Sara CAUSEY MD, RN 16:43:30 Heparin Flush added 2 Reji Minner used for Bag to bags Ruiz PADILLA procedure (1000units/500ml field RN NS) 16:43:33 Heparin Flush added 1 Reji Minner used for Bag to bags Ruiz PADILLA procedure (1000units/500ml field RN NS) 17:12:31 Heparin Bolus I.A. 3000 Reji Ryanr units Sara CAUSEY MD, RN 17:36:30 Hydralizine I.V. 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 16:04:45 ACIST Hand Control (20034) opened to sterile field. 16:04:45 ACIST Manifold (36711) opened to sterile field. 16:04:45 Bag Decanter (2001S) opened to sterile field. 16:04:46 Sterile Angiographic Pack opened to sterile field. 16:04:46 Tegaderm 4 x 4 (1626W) opened to sterile field. 16:05:13 DOC .035 wire (T22766) opened to sterile field. 16:05:14 TUBING High Pressure Extension Tubing (Puente) (UU1089T) opened to sterile field. 16:05:14 SHEATH 5FR [place] (WQS415) opened to sterile field. 16:05:19 - 16:13:21 Hollis Lupis RT (R) (CV) sent for patient. Start room use. 16:13:44 Time tracking: Regular hours (M-F 7:00 - 5:00) 16:13:52 Plan of Care:Hemodynamics will remain stable., Cardiac rhythm will remain stable., Comfort level will be maintained., Respiratory function will remain adequate., Patient/ family verbilizes understanding of procedure., Procedure tolerated without complication., Recovers from procedure without complications.. 16:13:58 Patient received from ED to IR Alert and oriented. Tansferred to table in Supine position. 16:14:00 Signed procedure consent form obtained from patient. 16:14:01 Warm blankets applied, and aiden hugger turned on for patient comfort. 16:14:01 Correct patient and procedure confirmed by team. 16:14:02 ECG and BP/O2 sat monitors applied to patient. 16:14:03 - 16:14:07 H&P Date Dictated: 10/22/2019 ER History on chart.. 16:14:10 Pre-procedure instructions explained to patient. 16:14:11 Pre-op teaching completed and patient verbalized understanding. 16:14:20 Family in patients room. 16:14:30 Patient allergic to No known allergies 16:14:33 Is the patient allergic to Iodine/contrast media? No. 16:15:50 Is patient on blood thinner?Yes 16:15:54 ACC The patient was administered the following blood thiners within the last 24 hours: ACCPlavix 16:15:56 Patient diabetic? Yes. 16:15:58 If diabetic: On Metformin? No 16:16:03 - 16:16:04 ----Pre-sedation anethsthesia assessment.---- 16:16:08 Previous problem with sedation/anesthesia? No ? 16:16:09 Snore? Yes 16:16:10 Sleep apnea? No 16:16:12 Deviated septum? No 16:16:14 Opens mouth fully? Yes 16:16:15 Sticks out tongue? Yes 16:16:16 Airway obstruction? No ? 16:16:22 Dentures? No ? 16:16:23 - 16:16:38 Pre procedure: left dorsailis pedis pulse Doppler 16:16:43 Pre procedure: left posterior tibial pulse Doppler 16:17:28 IV patent on arrival in right forearm with 0.9% NaCl at [facility]. 16:17:49 Left groin area was prepped with chlora-prep and draped in sterile fashion 16:17:49 Alarms reviewed by Chris Grimm 16:17:50 Sharps counted by scrub and verified by Marielle 16:17:51 - 16:38:57 --------ALL STOP TIME OUT------ 16:38:59 Final Timeout: patient, procedure, and site verified with staff and physician. All members of the team are in agreement. 16:39:54 Vital chart was started 16:40:13 Full Disclosure recording started 16:40:57 Physician arrived 16:41:01 Left groin site verified by team. 16:41:06 Fire Safety Assessment: A--An alcohol-based skin anteseptic being used preoperatively., C--Open oxygen or nitrous oxide is being used. 16:41:12 Procedure started. 16:42:49 TORQUE DEVICE PLASTIC .038 ( TD01) opened to sterile field. 16:42:50 GLIDE WIRE .038 180cm ANGLED (OV7836) opened to sterile field. 16:42:50 ARTHUR 260 wire (E49654) opened to sterile field. 16:42:53 A Hita ULTRA BOLUS FLUSH 5Fr 65CM catheter ([id number]) was opened t o sterile field. 16:43:05 Fentanyl 25 mcg I.V. was administered by Katia CAUSEY RN; for sedation; Verbal order read back and verified. 16:43:19 Versed 1 mg I.V. was administered by Katia CAUSEY RN; for sedation; Verbal order read back and verified. 16:43:30 Heparin Flush Bag (1000units/500ml NS) 2 bags added to field was administered by Katia CAUSEY RN; used for procedure; Verbal order read back and verified. 16:43:33 Heparin Flush Bag (1000units/500ml NS) 1 bags added to field was administered by Katia CAUSEY RN; used for procedure; Verbal order read back and verified. 16:45:21 A 5 Fr sheath was inserted into the Left Femoral artery 16:50:58 GLIDE CATHETER 4FR Cobra 2 65cm (CG409) opened to sterile field. 16:50:59 INFUSION CATHETER 30cm Jaye-Roderick (9442549) opened to sterile field . 17:04:56 ROADRUNNER .035 260 glide wire (S75165) opened to sterile field. 17:09:10 INFUSION CATHETER 10cm Cragg-Roderick (8262612) opened to sterile field . 17:12:31 Heparin Bolus 3000 units I.A. was administered by Katia CAUSEY RN; ; Verbal order read back and verified. 17:13:28 SUTURE ETHILON 2-0 BLK MONO FS opened to sterile field. 17:15:17 Procedure ended.(Physican Out) 17:15:43 Fluoroscopy time 14.80 minutes. 17:15:49 Fluoroscopy dose: 184 mGy 17:15:49 Flurop Dose total: 184 17:16:03 Contrast amount:Isovue 300 85ml. 17:16:29 Sharps counted by scrub and verified by R.N. 17:18:33 Insertion/operative site no bleeding no hematoma. 17:18:45 Post-op/insertion site Left Femoral artery dressed using a 4 x 4 and Tegaderm. Infusion catheter and sheath left in place in patients right groin. 17:19:28 Post procedure instruction explained to patient.Patient verbalizes understanding. 17:19:29 Procedure and supply charges have been captured, reviewed, submitted an d are correct. 17:36:30 Hydralizine 5 mg I.V. was administered by Katia CAUSEY RN; for hypertension; Verbal order read back and verified. 17:48:49 Vital chart was stopped 17:48:54 Patient transfered to ICU with Bed. 17:49:00 Report given to ICU. 17:49:02 Procedure ended. 17:49:02 Full Disclosure recording stopped Device Usage Item Name Manufacture Quantity Catalog Number Hospital Part [facility] Lot# / Charge Number Stock Stock Serial# Code ACIST Syringe Acist 1 46461 775630 800938 588741 20 (75494) Medical Systems Inc ACIST Hand Acist 1 69120 671748 399024 318298 5 Control Medical (65277) Systems Inc ACIST Manifold Acist 1 26243 350461 698726 318136 5 (84757) Medical Systems Inc Bag Decanter Microtek 1 201251 68398 672301 5 (2001S) Medical Inc. Sterile Cardinal 1 [id number] 851173 560262 5 Angiographic Health Pack Tegaderm 4 x 4 3M 1 1626W 381220 167409 173532 5 (1626W) TUBING High Merit 2 [id number] 416361 34855 104069 10 Pressure Medical Extension Tubing (Puente) (PD1652K) DOC .035 wire Cook Medical 1 T48823 576701 322681 5 (P73226) SHEATH 5FR Terumo 1 MCG638 342405 369905 946835 5 [place] (XKT264) TORQUE DEVICE [place] 1 TD01 727176 201001 041841 5 PLASTIC .038 ( Scientific TD01) GLIDE WIRE Terumo 1 TP4675 993552 363927 5 .038 180cm ANGLED (TF4617) ARTHUR 260 wire Cook Medical 1 W51072 615195 54120 154360 5 (R98831) Merit ULTRA Merit 1 [id number] 702370 182032 5 BOLUS FLUSH Medical 5Fr 65CM catheter ([id number]) GLIDE CATHETER Terumo 1 CG409 630417 200396 5 4FR Cobra 2 65cm (CG409) INFUSION Medtronic 1 50473-33 320314 431607 5 CATHETER 30cm Cragg-Roderick (5401416) [facility] Cook [facility] 1 G77274 360924 126172 685818 5 .035 260 glide wire (I07147) INFUSION Medtronic 1 27284-40 087517 652390 5 CATHETER 10cm Cragg-Roderick (0976357) SUTURE ETHILON Eth[place] 1 664H 120253 209115 5 2-0 BLK MONO FS Signature Audit [place] Stage Time Signature Unsigned Intra-Procedure 10/22/2019 SALMA MONTERO RT 5:49:25 PM (R) [facility] [address] [place] [address]
[2019-10-22 15:04] LABS: BASOPHILS 0.1 % (0-2); EOSINOPHILS 0.7 % (0-7); HEMATOCRIT 48.2 % (36.0-48.0); HEMOGLOBIN 15.6 g/dL (12-16); IMMATURE GRANULOCYTES 0.2 % (0-5); LYMPHOCYTES 24.6 % (15-50); MCH 29.2 pg (26.0-34.0); MCHC 32.4 g/dL (31.0-37.0); MCV 90.3 fL (80.0-100.0); MEAN PLATELET VOLUME 12.4 fL (7.4-10.4); MONOCYTES 10.5 % (2-11); NEUTROPHILS 63.9 % (40-80); PLATELET COUNT 121 10x3/uL (130-400); RBC 5.34 10x6/uL (4.00-5.40); RDW 14.5 % (11.5-14.5); WBC 8.1 10x3/uL (4.8-10.8)
[2019-10-22 15:11] LABS: PROTIME 13.2 SECONDS (11.6-15.0)
[2019-10-22 15:13] LABS: ANION GAP 6.1 mmol/L (8-16); CARBON DIOXIDE 33.6 mmol/L (21.0-32.0); CREATININE - SERUM 1.4 mg/dL (0.6-1.3); POTASSIUM - SERUM 3.7 mmol/L (3.5-5.1)
[2019-10-22 15:20] LABS: ALBUMIN 3.3 g/dL (3.4-5.0); BILIRUBIN - TOTAL 0.96 mg/dL (0.2-1.3); C-REACTIVE PROTEIN 3.4 mg/dL (0.0-0.9); PROTEIN - SERUM 7.4 g/dL (6.4-8.2)
[2019-10-22 16:45] LABS: ANION GAP 10.7 mmol/L (8-16); CALCIUM 9.2 mg/dL (8.5-10.1); CREATININE - SERUM 1.4 mg/dL (0.6-1.3); POTASSIUM - SERUM 3.7 mmol/L (3.5-5.1)
--- NOTE | 2019-10-22 17:58 | NUR ---
RECIEVED PT FROM IR. NO PULSES NOTED TO RIGHT FOOT. RIGHT GROIN SHEATH WITH HEPARIN AT 500 UNITS PER HOUR AND FIXED RATE. TPA 1MG/HOUR TO SHEATH. PLACED ORDER FOR RESTRAINTS DUE TO PT PULLING AT SHEATH.
--- NOTE | 2019-10-22 19:20 | NUR ---
PT CONFUSED AND DISORIENTED. UNABLE TO REORIENT. PT TEACHING PROVIDED, FURTHER TEACHING REQUIRED. R GROIN WITH SHEATH INTACT, AREA SOFT. R PEDAL PULSES PRESENT. L PEDAL PULSES ABSENT. DISCOLORATION TO L FOOT. VSS, NO C/O PAIN. UNLABORED RESPIRATIONS, SPO2 96 ON ROOM AIR. BOWEL SOUNDS ACTIVE. UGALDE CATH INTACT WITH YELLOW URINE TO BEDSIDE DRAINAGE. ROOM VISIBLE FROM NURSES STATION.
[2019-10-22 20:04] LABS: BASOPHILS 0.2 % (0-2); EOSINOPHILS 1.2 % (0-7); HEMATOCRIT 48.2 % (36.0-48.0); HEMOGLOBIN 15.6 g/dL (12-16); IMMATURE GRANULOCYTES 0.2 % (0-5); LYMPHOCYTES 27.2 % (15-50); MCH 29.2 pg (26.0-34.0); MCHC 32.4 g/dL (31.0-37.0); MCV 90.3 fL (80.0-100.0); NEUTROPHILS 62.2 % (40-80); PLATELET COUNT 112 10x3/uL (130-400); RBC 5.34 10x6/uL (4.00-5.40); RDW 14.4 % (11.5-14.5); WBC 8.2 10x3/uL (4.8-10.8)
[2019-10-22 20:21] LABS: INR 1.05 (0.85-1.17); PROTIME 13.7 SECONDS (11.6-15.0)
--- NOTE | 2019-10-22 20:50 | NUR ---
REC'D CALLBACK FROM KYLE REGARDING PT CONSULT, NO NEW ORDERS GIVEN AT THIS TIME.
--- NOTE | 2019-10-22 22:03 | NUR ---
PT SBP GREATER THAN 150, IR PAGED PER ORDER.
--- NOTE | 2019-10-22 22:10 | NUR ---
REC'D CALLBACK FROM LONG REGARDING BP, NEW ORDERS REC'D, SEE MAR.
--- NOTE | 2019-10-22 22:30 | NUR ---
PT ATTEMTPING TO SIT UP AND BEND LEG, PT TEACHING PROVIDED. PT UNABLE TO FOLLOW COMMANDS. BILATERAL WRIST RESTRAINTS IN USE. SHEATH REMAINS INTACT AND R GROIN SOFT TO PALPATION. ROOM VISIBLE FROM NURSES STATION. CPOC.
[2019-10-22 23:29] LABS: BASOPHILS 0.1 % (0-2); HEMATOCRIT 46.3 % (36.0-48.0); HEMOGLOBIN 15.3 g/dL (12-16); IMMATURE GRANULOCYTES 0.2 % (0-5); LYMPHOCYTES 28.9 % (15-50); MCH 29.3 pg (26.0-34.0); MCV 88.7 fL (80.0-100.0); MEAN PLATELET VOLUME 12.2 fL (7.4-10.4); NEUTROPHILS 58.8 % (40-80); PLATELET COUNT 110 10x3/uL (130-400); RBC 5.22 10x6/uL (4.00-5.40); RDW 14.2 % (11.5-14.5)
[2019-10-22 23:42] LABS: INR 1.07 (0.85-1.17); PROTIME 13.9 SECONDS (11.6-15.0)
[2019-10-22 23:47] LABS: APTT 50.8 SECONDS (22.8-39.4)
[2019-10-23] VITALS (26 sets, daily range): BP systolic 93–161; BP diastolic 51–87; BMI 27.1
--- NOTE | 2019-10-23 02:26 | NUR ---
PT ATTEMPTING TO PULL AT LINES/SHEATH DRESSING, REORIENTATION ATTEMPTED, PT REMAINS IRRITABLE. BILATERAL WRIST RESTRAINTS IN USE. PT TEACHING PROVIDED.
--- NOTE | 2019-10-23 02:34 | NUR ---
PT ATTEMPTING TO SIT UP, REORIENTATION ATTEMPTED, PT UNABLE TO FOLLOW COMMANDS. PT TEACHING PROVIDED. SHEATH REMAINS INTACT AND AREA SOFT TO PALPATION. BILATERAL RESTRAINTS IN USE. ROOM VISIBLE FROM NURSES STATION. CPOC.
--- NOTE | 2019-10-23 03:20 | NUR ---
PT REMAINS CONFUSED AND DISORIENTED, FREQUENT ATTEMPTS TO REORIENT AND CALM PT PROVIDED. R GROIN WITH SHEATH INTACT, AREA SOFT TO PALPATION. R PEDAL PULSES PRESENT. L PEDAL PULSES ABSENT. BILATERAL WRIST RESTRAINTS IN USE. ROOM VISIBLE FROM NURSES STATION, BED ALARM ON. CPOC.
[2019-10-23 04:59] LABS: APTT 47.8 SECONDS (22.8-39.4); INR 1.16 (0.85-1.17); PROTIME 14.7 SECONDS (11.6-15.0)
[2019-10-23 05:04] LABS: ANION GAP 11.5 mmol/L (8-16); BASOPHILS 0.3 % (0-2); CALCIUM 9.4 mg/dL (8.5-10.1); CARBON DIOXIDE 28.9 mmol/L (21.0-32.0); CREATININE - SERUM 1.1 mg/dL (0.6-1.3); EOSINOPHILS 0.4 % (0-7); HEMATOCRIT 49.3 % (36.0-48.0); HEMOGLOBIN 16.1 g/dL (12-16); IMMATURE GRANULOCYTES 0.3 % (0-5); LYMPHOCYTES 17.8 % (15-50); MCH 29.4 pg (26.0-34.0); MCHC 32.7 g/dL (31.0-37.0); MEAN PLATELET VOLUME 12.2 fL (7.4-10.4); NEUTROPHILS 73.2 % (40-80); PLATELET COUNT 120 10x3/uL (130-400); POTASSIUM - SERUM 3.4 mmol/L (3.5-5.1); RBC 5.48 10x6/uL (4.00-5.40); RDW 14.4 % (11.5-14.5); WBC 11.2 10x3/uL (4.8-10.8)
--- NOTE | 2019-10-23 05:55 | NUR ---
ATTEMPTING TO PULL AT LINES AND SIT UP, REORIENTATION ATTEMPTED. PT REMAINS CONFUSED. BILATERAL WRIST RESTRAINTS IN USE. RN AT BEDSIDE UNTIL PT CALMS. ROOM VISIBLE FROM NURSES STATION.
--- NOTE | 2019-10-23 07:28 | NUR ---
dr gonzalez at bedside. states if the heart rate stays around 120's then we will start on cardizem. will contineu to monitor pt.
--- NOTE | 2019-10-23 08:24 | HP ---
PATIENT: SALINA LAGUNAS MEDICAL RECORD: [id number] ACCOUNT: [id number] LOCATION:[facility] D.[id number] : 33 ADMISSION DATE: 10/22/19 PCP: SONIA CARPIO MD HISTORY AND PHYSICAL EXAMINATION DATE OF ADMISSION: 10/22/2019 CHIEF COMPLAINT: Cold leg. HISTORY OF PRESENT ILLNESS: This is an 84-year-old white female who was brought by her son after he noticed cold right foot within the last couple of hours. The patient has dementia and is really not a good historian, though she does deny any pain in her leg. The patient had same problem and was admitted here in to the hospital on 07/03/2019, when she was treated by interventional radiologist on the same leg. The patient was treated with heparin, tPA, and had stents placed. She was discharged in good condition on her aspirin and Plavix as well as her other medications. She has been doing well until now. CTA of the lower extremity with and without contrast today shows occlusion of the right superficial femoral artery. There is extensive stenting noted in her right leg. The patient is admitted to the ICU. Interventional radiology has already seen the patient. She is on heparin and tPA currently and she is pleasantly confused. PAST MEDICAL AND SURGICAL HISTORY: Coronary artery disease, chronic atrial fibrillation, peripheral artery disease, diabetes, dementia, thyroid disease, and skin cancer. PAST SURGICAL HISTORY: Coronary artery bypass graft, coronary stents, skin cancer removed, and she has had procedures by interventional radiology to revascularize her right lower extremity in June of this year. DRUG ALLERGIES: None known. HABITS: Never smoked. No alcohol or drugs. HOME MEDICATIONS: Metoprolol tartrate 25 mg twice a day, fish oil 1000 mg once a day, aspirin 81 mg once a day, Pepcid 20 mg twice a day, vitamin D 50,000 units every Tuesday, Levemir 50 units every morning, NovoLog FlexPen 5 units breakfast, 11 units at supper, isosorbide mononitrate 30 mg a day, Lasix 40 mg a day, trandolapril 1 mg a day, and levothyroxine 112 mcg a day. SOCIAL HISTORY: She is , lives with her son. FAMILY HISTORY: Parents are and their history is noncontributory for this 84-year-old. REVIEW OF SYSTEMS: GENERAL: No major weight changes. HEENT: No sinus or allergy problems. RESPIRATORY: No history of asthma, emphysema, or COPD. CARDIAC: She has a history of coronary artery disease and chronic atrial fibrillation. She has been seen by [facility] here. GASTROINTESTINAL: She has heartburn. GENITOURINARY: No significant problems there. MUSCULOSKELETAL: Has arthritic aches and pains. HISTORY AND PHYSICAL [id number] SALINA LAGUNAS NEUROLOGIC: She has dementia. No seizures, no migraine. PSYCHIATRIC: No depression or melancholia. PHYSICAL EXAMINATION: VITAL SIGNS: Today, temperature 97.3, pulse 84, respirations 20, and blood pressure was 165/78. GENERAL: She is awake and alert. She is pleasantly confused. She does not appear in acute distress. HEENT: Grossly unremarkable. NECK: Supple. No JVD or bruit. HEART: Irregularly irregular. LUNGS: Clear. ABDOMEN: Soft, flat, nontender. EXTREMITIES: No significant edema. The right lower extremity is cold from the mid calf down. LABORATORY DATA: CBC with a white count of 8100, hemoglobin 15.6, hematocrit 48.2. Basic metabolic panel is all okay except BUN 23, creatinine 1.4, glucose 241. INR is 1.0. Liver functions are okay. C-reactive protein 3.4. A CTA of the lower extremities showed occlusion of the right superficial femoral artery in an area of extensive vascular staining, moderate to severe atherosclerotic disease is present bilaterally. There is 2-vessel calf runoff via the posterior tibial and peroneal artery. ASSESSMENT: 1. Peripheral artery disease of the right lower extremity, recurrent. 2. Chronic atrial fibrillation. 3. Dementia. 4. Diabetes. 5. Hypertension. PLAN: Interventional radiology is already on the case and they will see her again tomorrow. I spoke with the patient's son. The patient is a DNR. She states that she has not missed any of her medications. TRANSINT:[id number] Voice Confirmation ID: [id number] DOCUMENT ID: [id number] SONIA CARPIO MD at 0824 CC: [id number] DICTATION DATE: 10/23/19 014 [employer] MANAGER: 10/23/19 0249 [facility] [place] [id number] [place] [id number]
[2019-10-23 11:22] LABS: BASOPHILS 0.2 % (0-2); EOSINOPHILS 0.1 % (0-7); HEMATOCRIT 42.2 % (36.0-48.0); HEMOGLOBIN 13.6 g/dL (12-16); IMMATURE GRANULOCYTES 0.3 % (0-5); LYMPHOCYTES 9.3 % (15-50); MCH 29.1 pg (26.0-34.0); MCHC 32.2 g/dL (31.0-37.0); MCV 90.2 fL (80.0-100.0); MEAN PLATELET VOLUME 12.6 fL (7.4-10.4); MONOCYTES 8.2 % (2-11); NEUTROPHILS 81.9 % (40-80); PLATELET COUNT 113 10x3/uL (130-400); RBC 4.68 10x6/uL (4.00-5.40); RDW 14.6 % (11.5-14.5); WBC 10.9 10x3/uL (4.8-10.8)
[2019-10-23 11:52] LABS: APTT 48.3 SECONDS (22.8-39.4)
[2019-10-23 12:25] LABS: INR 1.26 (0.85-1.17); PROTIME 15.7 SECONDS (11.6-15.0)
--- NOTE | 2019-10-23 18:27 | NUR ---
PT HAS RETURNED FROM IR WITH IR TEAM. PT IS RESTING. BILAT SHEATHS PER IR TEAM WITH HEPARIN GOING AT 500 UNIT IN EACH SHEATH
[2019-10-23 18:54] LABS: BASOPHILS 0.2 % (0-2); EOSINOPHILS 0 % (0-7); HEMATOCRIT 37.7 % (36.0-48.0); HEMOGLOBIN 12.1 g/dL (12-16); IMMATURE GRANULOCYTES 0.4 % (0-5); LYMPHOCYTES 13.3 % (15-50); MCH 29.1 pg (26.0-34.0); MCHC 32.1 g/dL (31.0-37.0); MCV 90.6 fL (80.0-100.0); MEAN PLATELET VOLUME 12.3 fL (7.4-10.4); MONOCYTES 9.2 % (2-11); NEUTROPHILS 76.9 % (40-80); PLATELET COUNT 111 10x3/uL (130-400); RBC 4.16 10x6/uL (4.00-5.40); RDW 14.8 % (11.5-14.5); WBC 12.4 10x3/uL (4.8-10.8)
--- NOTE | 2019-10-23 19:20 | NUR ---
BILATERAL HEPARIN GTT VIA SHEATH CHANGED FROM 500 UNITS/H TO 100 UNITS/H AT THIS TIME. PER ORDERS FROM IR. WILL RECHECK LAB X2HRS.
[2019-10-23 19:29] LABS: FIBRINOGEN 225 mg/dL (239-481); PROTIME 17.9 SECONDS (11.6-15.0)
[2019-10-23 20:24] LABS: APTT > 200.0 SECONDS (22.8-39.4)
--- NOTE | 2019-10-23 20:40 | NUR ---
PAGED IR REGARDING LAB
--- NOTE | 2019-10-23 21:20 | NUR ---
BILATERAL HEPARIN GTT VIA SHEATH CHANGED FROM 500 UNITS/H TO 100 UNITS/H AT THIS TIME. PER ORDERS FROM IR. WILL RECHECK X2HRS.
[2019-10-23 23:42] LABS: HEMATOCRIT 37.7 % (36.0-48.0); HEMOGLOBIN 12.1 g/dL (12-16); LYMPHOCYTES 9.7 % (15-50); MCH 28.7 pg (26.0-34.0); MCHC 32.1 g/dL (31.0-37.0); MCV 89.5 fL (80.0-100.0); MEAN PLATELET VOLUME 12.9 fL (7.4-10.4); NEUTROPHILS 81.5 % (40-80); PLATELET COUNT 111 10x3/uL (130-400); RBC 4.21 10x6/uL (4.00-5.40); RDW 14.9 % (11.5-14.5)
[2019-10-24] VITALS (44 sets, daily range): BP systolic 70–123; BP diastolic 44–82; Ht 170.2 cm; Wt 78.5 kg
[2019-10-24 00:17] LABS: INR 1.37 (0.85-1.17); PROTIME 16.8 SECONDS (11.6-15.0)
[2019-10-24 00:18] LABS: APTT 195.9 SECONDS (22.8-39.4)
--- NOTE | 2019-10-24 00:25 | NUR ---
REC'D CALLBACK FROM IR, UPDATED ON PT LAB RESULTS, ORDERS GIVEN TO KEEP BILATERAL HEPARIN GTT VIA SHEATH AT 100 UNIT/H AND RECHECK LAB AT 0300.
--- NOTE | 2019-10-24 00:57 | NUR ---
PT ATTEMPTING TO PULL AT SHEATH AND BEND LEGS, PT REPOSITIONED WITH LEGS STRAIGHT. UNABLE TO REORIENT, PT UNABLE TO UNDERSTAND PT TEACHING. BILATERAL WRIST RESTRAINTS IN USE. NURSE AT BEDSIDE UNTIL PT CALM AND RESTING. BILATERAL GROINS SOFT, SOME BLOODY DRAINAGE NOTED TO DRESSING. BILATERAL PEDAL PULSES PRESENT VIA DOPPLER. ROOM VISIBLE FROM NURSES STATION, BED ALARM ON. CPOC.
[2019-10-24 03:22] LABS: BASOPHILS 0.1 % (0-2); EOSINOPHILS 0 % (0-7); HEMATOCRIT 37.7 % (36.0-48.0); HEMOGLOBIN 11.9 g/dL (12-16); IMMATURE GRANULOCYTES 0.5 % (0-5); LYMPHOCYTES 9.1 % (15-50); MCHC 31.6 g/dL (31.0-37.0); MEAN PLATELET VOLUME 12.9 fL (7.4-10.4); MONOCYTES 8.9 % (2-11); NEUTROPHILS 81.4 % (40-80); PLATELET COUNT 132 10x3/uL (130-400); RDW 15.2 % (11.5-14.5); WBC 14.9 10x3/uL (4.8-10.8)
[2019-10-24 03:32] LABS: ANION GAP 20.1 mmol/L (8-16); CALCIUM 8.7 mg/dL (8.5-10.1); CARBON DIOXIDE 22.8 mmol/L (21.0-32.0)
[2019-10-24 03:33] LABS: CREATININE - SERUM 2.9 mg/dL (0.6-1.3); INR 1.42 (0.85-1.17); PROTIME 17.2 SECONDS (11.6-15.0)
[2019-10-24 03:34] LABS: POTASSIUM - SERUM 4.9 mmol/L (3.5-5.1)
--- NOTE | 2019-10-24 04:10 | NUR ---
PT SBP TRENDING INTO THE 80'S, LOWER ABD BECOMING FIRM AND VERY TENDER. NO BRUISING TO SIDES OR BACK, BILATERAL GROIN AND THIGH SOFT TO PALPATION. BILATERAL PEDAL PULSES PRESENT VIA DOPPLER. IR PAGED REGARDING CHANGE IN PT CONDITION.
--- NOTE | 2019-10-24 04:17 | NUR ---
REC'D CALLBACK FROM DR. ARGUELLES, ORDERS TO STOP HEPARIN INFUSION VIA BILATERAL GROIN SHEATHS AND TO START NS AT 25ML/HR TO BILATERAL SHEATHS, CT SCAN, AND H/H GIVEN AT THIS TIME.
--- NOTE | 2019-10-24 05:00 | NUR ---
DR. ARGUELLES AT BEDSIDE, ORDERS TO OBTAIN CONSENT FOR AN ARTERIOGRAM GIVEN.
[2019-10-24 05:11] LABS: HEMATOCRIT 36.9 % (36.0-48.0); HEMOGLOBIN 11.6 g/dL (12-16)
--- NOTE | 2019-10-24 06:14 | NUR ---
PT LEAVING UNIT FOR PROCEDURE AT THIS TIME
[2019-10-24 09:38] LABS: BASOPHILS 0.1 % (0-2); EOSINOPHILS 0 % (0-7); HEMATOCRIT 34.7 % (36.0-48.0); IMMATURE GRANULOCYTES 0.5 % (0-5); LYMPHOCYTES 9.9 % (15-50); MCH 29.4 pg (26.0-34.0); MCHC 31.7 g/dL (31.0-37.0); MCV 92.8 fL (80.0-100.0); MONOCYTES 8.2 % (2-11); NEUTROPHILS 81.3 % (40-80); PLATELET COUNT 135 10x3/uL (130-400); RBC 3.74 10x6/uL (4.00-5.40); RDW 15.5 % (11.5-14.5); WBC 17.3 10x3/uL (4.8-10.8)
[2019-10-24 09:46] LABS: INR 1.49 (0.85-1.17); PROTIME 17.9 SECONDS (11.6-15.0)
[2019-10-24 09:47] LABS: APTT 45.8 SECONDS (22.8-39.4)
--- NOTE | 2019-10-24 10:57 | NUR ---
Nutrition follow-up: Pt remains NPO due to procedure Labs reviewed WT: [id number]# Will need nutrition support started today if pt remains NPO RDN following.
[2019-10-24 12:44] LABS: BASOPHILS 0.1 % (0-2); EOSINOPHILS 0 % (0-7); HEMATOCRIT 35.7 % (36.0-48.0); HEMOGLOBIN 10.9 g/dL (12-16); IMMATURE GRANULOCYTES 0.6 % (0-5); MCH 28.8 pg (26.0-34.0); MCHC 30.5 g/dL (31.0-37.0); MCV 94.4 fL (80.0-100.0); MEAN PLATELET VOLUME 13.1 fL (7.4-10.4); MONOCYTES 8.1 % (2-11); NEUTROPHILS 83.2 % (40-80); PLATELET COUNT 129 10x3/uL (130-400); RBC 3.78 10x6/uL (4.00-5.40); RDW 15.5 % (11.5-14.5); WBC 18.7 10x3/uL (4.8-10.8)
[2019-10-24 12:45] LABS: APTT 33.8 SECONDS (22.8-39.4); INR 1.56 (0.85-1.17); PROTIME 18.5 SECONDS (11.6-15.0)
[2019-10-24 17:53] LABS: APTT 34.1 SECONDS (22.8-39.4); INR 1.84 (0.85-1.17)
[2019-10-24 17:55] LABS: ANION GAP 28.5 mmol/L (8-16); CALCIUM 7.9 mg/dL (8.5-10.1); CREATININE - SERUM 3.6 mg/dL (0.6-1.3); POTASSIUM - SERUM 4.8 mmol/L (3.5-5.1)
[2019-10-24 18:04] LABS: HEMATOCRIT 32.8 % (36.0-48.0); HEMOGLOBIN 9.9 g/dL (12-16); MCH 28.6 pg (26.0-34.0); MCHC 30.2 g/dL (31.0-37.0); MCV 94.8 fL (80.0-100.0); MEAN PLATELET VOLUME 12.8 fL (7.4-10.4); PLATELET COUNT 121 10x3/uL (130-400); RBC 3.46 10x6/uL (4.00-5.40); RDW 15.7 % (11.5-14.5); WBC 21.3 10x3/uL (4.8-10.8)
[2019-10-24 18:05] LABS: CARBON DIOXIDE 15.3 mmol/L (21.0-32.0)
[2019-10-24 18:24] LABS: LYMPHOCYTES 8 % (15-50); NEUTROPHILS 92 % (40-80); PLATELET ESTIMATE NORMAL
--- NOTE | 2019-10-24 19:15 | NUR ---
PT LETHATGIC, OPENS EYES TO STIMULI, LUNGS CLEAR, O2 @ 2L VIA N/C, LEFT TLSC INTACT WITH LEVOPHED GTT @ 5 MCG, NS @ 100CC/HR, RIGHT ARM PIV X2 INTACT AND TRAM WELCH PATENT TO BSSoham, MICHAEL TORREZR IN USE, VITALS STABLE
[2019-10-24 19:29] LABS: ALKALINE PHOSPHATASE 96 U/L (30-120); ALT (SGPT) 697 U/L (10-68); BILIRUBIN - DIRECT 0.85 mg/dL (0.00-0.30); BILIRUBIN - INDIRECT 0.66 mg/dL (0.00-1.00); BILIRUBIN - TOTAL 1.51 mg/dL (0.2-1.3); PROTEIN - SERUM 5.5 g/dL (6.4-8.2)
[2019-10-24 19:31] LABS: CREATINE KINASE 1216 UL (21-215)
[2019-10-24 19:32] LABS: CKMB 30.2 U/L (0.0-3.6)
--- NOTE | 2019-10-24 21:00 | NUR ---
PT AWAKE AT TIMES, RESPONDS TO VERBAL, SPEECH GARBLED, VITALS STABLE
--- NOTE | 2019-10-24 23:00 | NUR ---
PT RESTING QUIETLY WITH EYES CLOSED, NO DISTRESS NOTED
[2019-10-24 23:34] LABS: HEMATOCRIT 29.9 % (36.0-48.0); HEMOGLOBIN 9.5 g/dL (12-16); LYMPHOCYTES 4.8 % (15-50); MCH 28.8 pg (26.0-34.0); MCHC 31.8 g/dL (31.0-37.0); MCV 90.6 fL (80.0-100.0); MEAN PLATELET VOLUME 12.4 fL (7.4-10.4); NEUTROPHILS 91.7 % (40-80); PLATELET COUNT 108 10x3/uL (130-400); RDW 15.7 % (11.5-14.5); WBC 20.2 10x3/uL (4.8-10.8)
[2019-10-24 23:47] LABS: INR 1.69 (0.85-1.17); PROTIME 19.7 SECONDS (11.6-15.0)
[2019-10-24 23:53] LABS: APTT 34.8 SECONDS (22.8-39.4)
[2019-10-25] VITALS (27 sets, daily range): BP systolic 90–154; BP diastolic 36–115
[2019-10-25 00:22] LABS: ANION GAP 22.8 mmol/L (8-16); CALCIUM 7.6 mg/dL (8.5-10.1); CARBON DIOXIDE 18.1 mmol/L (21.0-32.0); CREATININE - SERUM 3.9 mg/dL (0.6-1.3); POTASSIUM - SERUM 3.9 mmol/L (3.5-5.1)
--- NOTE | 2019-10-25 01:00 | NUR ---
PT RESTLESS AT TIMES, ATTEMPTS TO PULL AT LINES, SWR REMAIN IN USE
--- NOTE | 2019-10-25 03:47 | NUR ---
PT BATHED PER STAFF, PT REMAINS CONFUSED, DOES NOT FOLLOW COMMANDS, VITALS STABLE
[2019-10-25 05:35] LABS: BASOPHILS 0.1 % (0-2); EOSINOPHILS 0 % (0-7); HEMATOCRIT 26.9 % (36.0-48.0); HEMOGLOBIN 8.6 g/dL (12-16); IMMATURE GRANULOCYTES 0.3 % (0-5); LYMPHOCYTES 5.3 % (15-50); MCV 90.6 fL (80.0-100.0); MEAN PLATELET VOLUME 12.5 fL (7.4-10.4); MONOCYTES 4.4 % (2-11); NEUTROPHILS 89.9 % (40-80); PLATELET COUNT 112 10x3/uL (130-400); RBC 2.97 10x6/uL (4.00-5.40); RDW 15.5 % (11.5-14.5); WBC 18.5 10x3/uL (4.8-10.8)
[2019-10-25 05:36] LABS: ANION GAP 21.9 mmol/L (8-16); CALCIUM 7.5 mg/dL (8.5-10.1); CARBON DIOXIDE 19.8 mmol/L (21.0-32.0); CREATININE - SERUM 3.8 mg/dL (0.6-1.3); POTASSIUM - SERUM 3.7 mmol/L (3.5-5.1); VANCOMYCIN - RANDOM 17.9 ug/mL (10.0-20.0)
--- NOTE | 2019-10-25 15:06 | NUR ---
[facility] HERE TO TRANSPORT PT TO [facility].
== END 2019-10-25 15:13 | disposition home health service (06) | DRG 270 ==
LOC: D.ER 14:34 → D.ICU 16:20
PROVIDERS: Family Medicine; General Practice; Internal Medicine; Internal Medicine Pulmonary Disease; Radiology Vascular & Interventional Radiology; Specialist; ADMIT Family Medicine; ATTEND Family Medicine
PROC: 3E05317 Introduction of Other Thrombolytic into Peripheral Artery, Percutaneous Approach (ICD-10-PCS; 2019-10-22)
PROC: 04CN3ZZ Extirpation of Matter from Left Popliteal Artery, Percutaneous Approach (ICD-10-PCS; 2019-10-23)
PROC: 047U3ZZ Dilation of Left Peroneal Artery, Percutaneous Approach (ICD-10-PCS; 2019-10-23)
PROC: 047T3ZZ Dilation of Right Peroneal Artery, Percutaneous Approach (ICD-10-PCS; 2019-10-23)
PROC: 04CL3ZZ Extirpation of Matter from Left Femoral Artery, Percutaneous Approach (ICD-10-PCS; principal; 2019-10-23 15:36)
PROC: 04LY3DZ Occlusion of Lower Artery with Intraluminal Device, Percutaneous Approach (ICD-10-PCS; 2019-10-24)
PROC: 05H633Z Insertion of Infusion Device into Left Subclavian Vein, Percutaneous Approach (ICD-10-PCS; 2019-10-24)
DX: I75.023 Atheroembolism of bilateral lower extremities (principal); G93.41 Metabolic encephalopathy; N17.0 Acute kidney failure with tubular necrosis; R57.9 Shock, unspecified; E87.2 Acidosis; K21.9 Gastro-esophageal reflux disease without esophagitis; I10 Essential (primary) hypertension; E11.9 Type 2 diabetes mellitus without complications; I25.10 Atherosclerotic heart disease of native coronary artery without angina pectoris; F03.90 Unspecified dementia, unspecified severity, without behavioral disturbance, psychotic disturbance, mood disturbance, and anxiety; R53.1 Weakness; R58 Hemorrhage, not elsewhere classified; I77.1 Stricture of artery; I73.9 Peripheral vascular disease, unspecified; D72.829 Elevated white blood cell count, unspecified